=== PATIENT | male | born 1985 | race Caucasian/White ===

== ENCOUNTER → 2019-12-21 12:58 | Outpatient (BNVA) | payer OTHER, SELFPAY | PROVIDERS: PCP Internal Medicine; Referring Provider Internal Medicine; Visit Provider Internal Medicine Gastroenterology | DX: K21.9 Gastro-esophageal reflux disease without esophagitis (principal); R11.2 Nausea with vomiting, unspecified; R63.4 Abnormal weight loss; D50.9 Iron deficiency anemia, unspecified; D13.0 Benign neoplasm of esophagus; Z79.899 Other long term (current) drug therapy; Z98.890 Other specified postprocedural states | CPT/HCPCS: 99213 ==

== ENCOUNTER → 2020-01-22 08:26 | Outpatient (BNVA) | payer OTHER, SELFPAY | PROVIDERS: PCP Internal Medicine; Referring Provider Internal Medicine; Visit Provider Internal Medicine Gastroenterology | DX: D50.9 Iron deficiency anemia, unspecified (principal); R63.4 Abnormal weight loss; K21.9 Gastro-esophageal reflux disease without esophagitis; R11.2 Nausea with vomiting, unspecified; F11.20 Opioid dependence, uncomplicated | CPT/HCPCS: 99212 ==

== ENCOUNTER 2020-01-23 09:15 | Outpatient (REF) | payer OTHER, SELFPAY ==
[2020-01-23 11:41] LABS: Hematocrit 38.5 % (42-52); Hemoglobin 12.6 g/dl (14.0-18.0); Mean Corpuscular HGB Conc 32.7 g/dl (31.0-36.0); Mean Corpuscular Hemoglobin 29.6 pg (27.0-33.0); Mean Corpuscular Volume 90.4 fL (80-98); Mean Platelet Volume 10.4 fL (9.4-12.4); Platelet Count 264 X10*3/uL (160-400); Red Blood Count 4.26 X10*6/uL (4.60-5.80); Red Cell Distribution Width 11.9 % (11.0-16.0); White Blood Count 5.6 X10*3/uL (4.8-10.8)
[2020-01-23 11:52] LABS: Estimated Average Glucose 105 mg/dL; Hemoglobin A1c % 5.3 %
[2020-01-23 12:00] LABS: Glucose Fasting 94 mg/dL (60-99); Iron 98 mcg/dL (45-160); Percent Iron Saturation 32 % (15-50); Total Iron Binding Capacity 307 mcg/dL (228-428); Unsaturated Iron Binding 209 ug/dL
[2020-01-23 12:24] LABS: Ferritin 52 ng/mL (20-250)
[2020-01-24 14:21] LABS: Insulin Level Total 2.2 uIU/mL
== END 2020-01-23 09:16 | disposition home or self-care (01) ==
LOC: HO.HMGCLDS 09:15
PROVIDERS: PCP Internal Medicine; Visit Provider Internal Medicine Gastroenterology
DX: D50.9 Iron deficiency anemia, unspecified (principal); R11.2 Nausea with vomiting, unspecified; R63.4 Abnormal weight loss
CPT/HCPCS: 36415; 82728; 82947; 83036; 83525; 83540; 85027

== ENCOUNTER 2020-02-02 11:58 | Outpatient (REF) | payer OTHER, SELFPAY | END 2020-02-02 11:59 | disposition home or self-care (01) | LOC: HO.LNP 11:58 | PROVIDERS: Visit Provider Hospitalist | DX: Z20.828 Contact with and (suspected) exposure to other viral communicable diseases (principal) | CPT/HCPCS: U0003 ==

== ENCOUNTER → 2020-05-23 08:24 | Outpatient (BNVA) | payer OTHER, SELFPAY | PROVIDERS: PCP Internal Medicine; Visit Provider Internal Medicine Gastroenterology ==

== ENCOUNTER 2020-06-28 07:45 | Day surgery (SDC) | payer OTHER, SELFPAY ==
--- NOTE | 2020-06-26 14:53 | HO.ANESPROP2 ---
Documented by User: Tianna Linares 06/26/20 14:54 HPI - Anesthesia Eval Consult details Narrative: 35yo M for Colonoscopy PMFSH Active Problems Active Problems: All Active Problems (Updated 05/23/20 @ 08:47 by Ronny Olivera MD) Exposure to COVID-19 virus (Acute) Acute sinusitis (Acute) Subcutaneous mass of left foot (Acute) Iron deficiency anemia (Acute) Weight loss, unintentional (Acute) GERD without esophagitis (Acute) Nausea and vomiting (Acute) Past Medical History Medical History Anxiety GERD without esophagitis History of opiate therapy Iron deficiency anemia Nausea and vomiting Subcutaneous mass of left foot Weight loss, unintentional Family History Family History Father Alive and well Mother Alive and well Surgical History Surgical History Hx of appendectomy Hx of endoscopy Hx of removal of cyst Social History Social History Alcohol intake: never Smoking Status: Never smoker Second Hand Smoke Exposure: No Use of substances other than those prescribed or required for medical reasons: Yes Substance Use Type: Marijuana Substance Use Frequency: Occasionally Advance Directives: No Advance Directives Information Provided: Yes Advance Directives on File: No Meds Allergies Allergy/AdvReac Type Severity Reaction Status Date / Time latex [LATEX] Allergy Unknown RASH Verified 06/28/20 08:17 BLISTERS latex Allergy Unknown skin rash Uncoded 02/02/20 09:21 laxtex Allergy Unknown rash Uncoded 02/02/20 09:21 Home Medications Medication Instructions Recorded Confirmed Last Taken Type buprenorphine 8 mg-naloxone 2 mg film SUBLINGUAL 12/20/19 05/23/20 Unknown History sublingual film Exam Exam Date and Time: June 26, 2020 498 Assessment and Plan Assessment Anesthesia Assessment: Chart Reviewed Documented by User: Miriam Tobar 06/28/20 08:17 PMFSH Past Medical History Medical History Anxiety GERD without esophagitis History of opiate therapy Iron deficiency anemia Nausea and vomiting Subcutaneous mass of left foot Weight loss, unintentional Family History Family History Father Alive and well Mother Alive and well Surgical History Surgical History Hx of appendectomy Hx of endoscopy Hx of removal of cyst Social History Social History Alcohol intake: never Smoking Status: Never smoker Second Hand Smoke Exposure: No Use of substances other than those prescribed or required for medical reasons: Yes Substance Use Type: Marijuana Substance Use Frequency: Occasionally Advance Directives: No Advance Directives Information Provided: Yes Advance Directives on File: No Meds Allergies Allergy/AdvReac Type Severity Reaction Status Date / Time latex [LATEX] Allergy Unknown RASH Verified 06/28/20 08:17 BLISTERS latex Allergy Unknown skin rash Uncoded 02/02/20 09:21 laxtex Allergy Unknown rash Uncoded 02/02/20 09:21 Home Medications Medication Instructions Recorded Confirmed Last Taken Type buprenorphine 8 mg-naloxone 2 mg film SUBLINGUAL 12/20/19 05/23/20 Unknown History sublingual film Exam Airway Mallampati Class: II TM Dist: >3cm Neck ROM: Full Assessment and Plan Assessment Anesthesia Assessment: Anesthesia Plan Discussed and Chart Reviewed Final Anesthetic Review NPO: Yes ASA Class: II Final Preanesthetic Review: No Changes in Pt Med Stat, Meds/Allgs Chart Reviewed, Consent Obtained/Reviewed and Anes Risks/Benef Reviewed Patient Risk: Low Procedure Risk: Low Assessment/Block/Sedation in SS: Assess/Block/Sedation-SS Anesthetic Plan Anesthetic Plan: MAC: Disposition: Standard PACU
[2020-06-28 07:52] VITALS: BMI 22.1
[2020-06-28] MEDS: Lactated Ringers 1,000 ML 100 ML IVCONT (08:18)
--- NOTE | 2020-06-28 08:20 | P.OP_ITS ---
Operative Note Operative Note Date of Service: 06/28/20 Narrative: Pre-op diagnosis: Iron deficiency anemia, wt loss Post-op diagnosis: other (Colon polyp, diverticulosis, hemorrhoids) Procedure: COLONOSCOPY TILL CECUM WITH BIOPSIES, SNARE POLYPECTOMY, SUBMUCOSAL INJECTION AN D HEMOCLIP PLACEMENT Consent: Indications for the procedure and potential complications of bleeding, perforation, reaction to medications and missed diagnosis were discussed with the patient and informed consent was obtained. Instrument: Olympus PCF H 190 L variable stiffness pediatric colonoscope Monitoring: Vital signs and clinical assessment, intermittent blood pressure monitoring, continuous EKG monitoring, Pulse oximetry and Carbon Dioxide monitoring were done throughout the procedure. Colon withdrawl time was 40 minutes. Procedure: The patient was placed in the left lateral decubitis position and pre-procedure medications were administered. After a digital rectal examination of the ano-rectum, the video colonoscope was inserted into the rectum and advanced through the colon to the cecum. The colonoscope was slowly withdrawn in a retrograde panoramic fashion and the colon mucosa was carefully examined including a retroflexed view of the rectum. Findings and interventions are described below. Procedure Difficulty: Without difficulty Findings: Terminal Ileum: Distal 10 cms was examined and nodular appearing mucosa visualized - random biopsies were obtained Cecum: Normal Ascending Colon: A 2.5 x 3 cms flat polyp in the distal AC at 80 cms. Polyp was raised with 5 cc of Orise solution and removed piece meal with a stiff snare. Polypectomy site was marked with Fidelia ink and closed with resolution clips x 2 Transverse Colon: Normal Descending Colon: Normal Sigmoid Colon: Moderate diverticulosis Rectum: Normal Ano-rectum: Small internal hemorrhoids Colon preparation: Good after some irrigation Impression and Post Procedure Diagnosis: Colonoscopy Findings: One large flat polyp removed Random biopsies were obtained from the colon and TI Moderate diverticulosis seen in the sigmoid colon Small hemorrhoids on retroflexed exam. No source found for AMY and weight loss Plan: Await pathology results Patient has an appointment on 07/11/20 in the GI Clinic with Ronny Olivera M.D. Repeat Colonoscopy interval based on path results - in 1 year (to check polypectomy site) if ascending colon polyp is adenomatous and 10 years if polyps is hyperplastic. Above findings were reviewed with the patient and colon polyps and diverticulosis handouts were given in the discharge area Surgeon: Ronny Olivera MD Anesthesia: MAC (Olinda Downs, ELENA) House Calls Nurse: Salome Brock Estimated blood loss (mL): 0 Pathology: other (A. TI RANDOM BXS, R/O IBD B. ASCENDING COLON POLYP AT 80 CM WITH O-RISE C. RANDOM COLON BXS, R/O MICROSCOPIC COLITIS) Condition: stable Disposition: PACU
--- NOTE | 2020-06-28 08:20 | MHC.SHP ---
Pre-Procedural Eval Section A The patient is an INPATIENT: No The History & Physical has been completed within 30 days and I have reviewed it.: No Section B Chief Complaint: anemia Details of Present Illness: Iron deficiency anemia Relevant Family History (Specify if Yes): No Relevant Social History: Other (specify) (Marijuana) Present Medications: see Short Stay Collaborative assessment Medical History: Significant History (Anxiety GERD without esophagitis History of opiate therapy Iron deficiency anemia Nausea and vomiting Subcutaneous mass of left foot Weight loss, unintentional) History of Previous Operations: Relevant previous surgery/procedure and date(s) (Hx of appendectomy Hx of endoscopy Hx of removal of cyst) Allergies: Allergies Allergy/AdvReac Type Severity Reaction Status Date / Time latex [LATEX] Allergy Unknown RASH Verified 06/28/20 08:17 BLISTERS latex Allergy Unknown skin rash Uncoded 02/02/20 09:21 laxtex Allergy Unknown rash Uncoded 02/02/20 09:21 Review of Systems Sugical H&P ROS: Negative: Constitution, Cardiovascular and Respiratory and Yes, Specify: Gastrointestinal (GERD, weight loss) Exam Surgical H&P Exam: Normal: Heart, Normal: Lungs, Normal: Extremities and Normal: Abdomen Plan Diagnosis/Plan: Unchanged I have reviewed the history and physical and performed a pertinent physical examination on my patient. No changes have occurred unless specified.
[2020-06-28 09:55] VITALS: BP 116/76; PULSE 73; RESP 16; TEMP 36.6; O2SAT 98
[2020-06-28 10:10] VITALS: BP 123/74; PULSE 70; RESP 16; TEMP 36.6; O2SAT 100
== END 2020-06-28 10:33 | disposition home or self-care (01) ==
PROVIDERS: PCP Internal Medicine; Visit Provider Internal Medicine Gastroenterology
PROC: 0DJD8ZZ Inspection of Lower Intestinal Tract, Via Natural or Artificial Opening Endoscopic (ICD-10-PCS; CPT 45378; principal; 2020-06-28 09:20)
DX: D50.9 Iron deficiency anemia, unspecified (principal); R63.4 Abnormal weight loss; R11.2 Nausea with vomiting, unspecified; K21.9 Gastro-esophageal reflux disease without esophagitis; D12.2 Benign neoplasm of ascending colon; K57.30 Diverticulosis of large intestine without perforation or abscess without bleeding; K64.8 Other hemorrhoids
CPT/HCPCS: 45385; 45380; 45381; 88305; J1610

== ENCOUNTER → 2020-07-11 14:31 | Outpatient (BNVA) | payer OTHER, SELFPAY | PROVIDERS: PCP Internal Medicine; Visit Provider Internal Medicine Gastroenterology | DX: D50.9 Iron deficiency anemia, unspecified (principal); R63.4 Abnormal weight loss; K21.9 Gastro-esophageal reflux disease without esophagitis; R11.2 Nausea with vomiting, unspecified; Z86.010 Personal history of colon polyps | CPT/HCPCS: 99212 ==

== ENCOUNTER 2020-08-26 09:07 | Outpatient (REF) | payer OTHER, SELFPAY ==
--- NOTE | ~2020-08-26 | CT_ITS ---
EXAMINATION: CT ABDOMEN AND PELVIS WITH CONTRAST CLINICAL INFORMATION: On an deficiency anemia. COMPARISON: None TECHNIQUE: Multidetector volumetric images were obtained from the superior aspect of the liver through the pubic symphysis following administration 85 mL of Omnipaque 350 intravenous contrast. Sagittal and coronal reformatted images were obtained on the technologist's workstation. Oral contrast: No This CT examination was performed using dose optimization techniques as appropriate, variously including the following: *Automated exposure control *Adjustment of mA and/or kV according to patient size (this includes techniques or standardized protocols for targeted exams where dose is matched to indication/reason for exam; i.e. extremities or head) *Use of iterative reconstruction technique DLP: 498 mGy-cm FINDINGS: LUNG BASES: The visualized lung bases are unremarkable. LIVER, GALLBLADDER, AND BILIARY TREE: The liver is normal in size, shape, and attenuation. No focal hepatic lesion or biliary ductal dilatation is present. The gallbladder is unremarkable with no evidence of radiopaque gallstones, gallbladder wall thickening, or obvious pericholecystic inflammatory changes. PANCREAS: Unremarkable. SPLEEN: Unremarkable. ADRENAL GLANDS: Unremarkable. KIDNEYS AND URETERS: The kidneys are normal in size, shape, and attenuation. No hydronephrosis, hydroureter, or calculi seen. No perinephric stranding. BLADDER: Unremarkable. GASTROINTESTINAL TRACT: Scattered stool, oral contrast and gas is seen throughout the colon without distention. A low-lying cecum in the right pelvis is noted. There is oral contrast seen throughout a normal caliber small bowel. Appendix is not visualized. No free air or inflammatory process seen. ABDOMINAL WALL: No significant hernia is appreciated. LYMPH NODES: Normal. VASCULAR: Unremarkable. PELVIC VISCERA: The prostate gland is normal size. OSSEOUS STRUCTURES: There are degenerative disc changes with vacuum disc phenomena and mild disc bulge L5-S1 disc level. CT/CT abdomen pelvis w con IMPRESSION: Moderate constipation without distention. Low-lying cecum in the right colon.
[2020-08-26] MEDS: iohexoL 350 MG/ML 100 ML INFUS..BTL IV (12:09)
[2020-08-26] MEDS: Barium Sulfate Oral (Mocha) 450 ML ORAL.SUSP 900 ML PO (12:11)
== END 2020-08-26 09:08 | disposition home or self-care (01) ==
LOC: HO.CT 09:07
PROVIDERS: PCP Internal Medicine; Visit Provider Internal Medicine Gastroenterology
DX: D50.9 Iron deficiency anemia, unspecified (principal); Z87.442 Personal history of urinary calculi
CPT/HCPCS: 74177; Q9967

== ENCOUNTER 2021-05-26 06:14 | Outpatient (REF) | payer OTHER, SELFPAY ==
[2021-05-26 11:31] LABS: MANUAL DIFF FLAG NO
[2021-05-26 11:34] LABS: Basophils Percent Auto 0.6 % (0-2); Eosinophils Absolute Auto 0.2 X10*3/uL (0.0-0.4); Eosinophils Percent Auto 2.2 % (0-4); Hematocrit 39.2 % (42.0-52.0); Hemoglobin 12.9 g/dl (14.0-18.0); Imm Gran Abs Auto 0.01 X10*3/uL (0.00-0.03); Imm Gran Pct Auto 0.1 % (0.0-0.4); Lymphocytes Absolute Auto 1.9 X10*3/uL (1.2-4.9); Lymphocytes Percent Auto 27.6 % (20-40); Mean Corpuscular HGB Conc 32.9 g/dl (31.0-36.0); Mean Corpuscular Hemoglobin 29.5 pg (27.0-33.0); Mean Corpuscular Volume 89.7 fL (80.0-98.0); Mean Platelet Volume 10.6 fL (9.4-12.4); Monocytes Absolute Auto 0.7 X10*3/uL (0.1-1.2); Monocytes Percent Auto 10.1 % (2-11); Neutrophils Absolute Auto 4.1 x10*3/uL (2.0-8.3); Neutrophils Percent Auto 59.4 % (45-73); Platelet Count 288 X10*3/uL (160-400); Red Blood Count 4.37 X10*6/uL (4.60-5.80); Red Cell Distribution Width 12.2 % (11.0-16.0); White Blood Count 6.9 X10*3/uL (4.8-10.8)
[2021-05-26 12:09] LABS: Alanine Aminotransferase 12 U/L (0-40); Anion Gap 12 (12-20); Aspartate Amino Transferase 15 U/L (5-37); Blood Urea Nitrogen 19 mg/dL (9-16); Calcium 9.5 mg/dL (8.4-10.2); Carbon Dioxide 33 mmol/L (22-29); Chloride 99 mmol/L (96-108); Cholesterol 151 mg/dL; Estimated Glomerular Filt Rate > 60; Glucose Fasting 97 mg/dL (60-99); HDL Cholesterol 50 mg/dL; Iron 51 mcg/dL (45-160); LDL Cholesterol Calculated 70 mg/dl; Percent Iron Saturation 16 % (15-50); Potassium 4.8 mmol/L (3.3-5.1); Sodium 139 mmol/L (135-145); Total Iron Binding Capacity 312 mcg/dL (228-428); Triglycerides 157 mg/dL; Unsaturated Iron Binding 261 ug/dL
== END 2021-05-26 06:15 | disposition home or self-care (01) ==
LOC: HO.HMGCLDS 06:14
PROVIDERS: Visit Provider Internal Medicine
DX: Z00.00 Encounter for general adult medical examination without abnormal findings (principal); K21.9 Gastro-esophageal reflux disease without esophagitis; D50.9 Iron deficiency anemia, unspecified; F41.1 Generalized anxiety disorder
CPT/HCPCS: 36415; 80048; 80061; 83540; 84450; 84460; 85025

== ENCOUNTER 2021-06-05 09:07 | Outpatient (REF) | payer OTHER, SELFPAY ==
[2021-06-07 08:02] LABS: Transglutaminase Ab IgG <1.0 U/mL
[2021-06-07 11:42] LABS: Immunoglobulin A 326 mg/dL (47-310)
[2021-06-10 14:41] LABS: Endomysial IgA Antibody Negative (Negative)
== END 2021-06-05 09:08 | disposition home or self-care (01) ==
LOC: HO.HMGCLDS 09:07
PROVIDERS: PCP Internal Medicine; Visit Provider Internal Medicine
DX: M25.50 Pain in unspecified joint (principal); D50.9 Iron deficiency anemia, unspecified; Z83.79 Family history of other diseases of the digestive system
CPT/HCPCS: 36415; 82784; 86231; 86364

== ENCOUNTER → 2021-09-05 09:20 | Outpatient (BNVA) | payer OTHER, SELFPAY | PROVIDERS: PCP Internal Medicine; Visit Provider Internal Medicine Gastroenterology | DX: D50.9 Iron deficiency anemia, unspecified (principal); K21.9 Gastro-esophageal reflux disease without esophagitis; R63.4 Abnormal weight loss; Z68.1 Body mass index [BMI] 19.9 or less, adult; R68.81 Early satiety; Z86.010 Personal history of colon polyps; Z83.79 Family history of other diseases of the digestive system; Z79.899 Other long term (current) drug therapy | CPT/HCPCS: 99212 ==

== ENCOUNTER → 2021-11-28 07:53 | Outpatient (REF) | payer OTHER, SELFPAY ==
--- NOTE | ~2021-11-28 | NM_ITS ---
EXAMINATION: RADIONUCLIDE SOLID FOOD GASTRIC EMPTYING 4-HOUR STUDY CLINICAL INFORMATION: Early satiety. COMPARISON: No previous gastric emptying study is available for comparison. TECHNIQUE: A standard meal consisting of 4 oz of Egg Beaters brand equivalent tagged with 130 microcuries Tc-99m Sulfur Colloid, 8 oz water and 2 slices of toast with jelly was administered orally to the patient. Images were obtained using a dual head gamma camera in the anterior and posterior projections over of the stomach immediately post ingestion and at hourly intervals up to 4 hours post ingestion. The anterior and posterior counts at each time interval were averaged using the geometric mean and expressed as percentage of the immediate post ingestion counts. FINDINGS: There is good visualization of activity in the stomach immediately post ingestion. As the study progresses, there is there clearance of activity from the stomach and visualization of progressively increasing small bowel activity. Liver, at the end of the study at 4 hours there is mild abnormal retention of activity in the stomach. Retention in the stomach at each time interval was: 1 hour 72% (normal 37%-90%) 2 hours 53% (normal 30%-60%) 3 hours 30% 4 hours 14% (normal 0%-10%) FL/FL gastric emptying study IMPRESSION: Abnormal study. There is mild abnormal retention of solid food in the stomach at 4 hours.
== END ==
LOC: HO.NUCMED 07:53
PROVIDERS: PCP Internal Medicine; Visit Provider Internal Medicine Gastroenterology
DX: R68.81 Early satiety (principal); R63.4 Abnormal weight loss
CPT/HCPCS: 78264; A9541

== ENCOUNTER → 2022-01-07 13:08 | Outpatient (BNVA) | payer OTHER, SELFPAY | PROVIDERS: PCP Internal Medicine; Visit Provider Physician Assistant | DX: S67.01XA Crushing injury of right thumb, initial encounter (principal); X58.XXXA Exposure to other specified factors, initial encounter | CPT/HCPCS: 73140; 99204 ==

== ENCOUNTER → 2022-01-12 14:49 | Outpatient (BNVA) | payer OTHER, SELFPAY | PROVIDERS: PCP Internal Medicine; Visit Provider Internal Medicine | DX: S67.01XA Crushing injury of right thumb, initial encounter (principal); L03.011 Cellulitis of right finger; X58.XXXA Exposure to other specified factors, initial encounter | CPT/HCPCS: 99213 ==

== ENCOUNTER → 2022-01-19 13:32 | Outpatient (BNVA) | payer OTHER, SELFPAY | PROVIDERS: PCP Internal Medicine; Visit Provider Internal Medicine | DX: S67.01XA Crushing injury of right thumb, initial encounter (principal); X58.XXXA Exposure to other specified factors, initial encounter | CPT/HCPCS: 99213 ==

== ENCOUNTER 2022-06-12 09:58 | Day surgery (SDC) | payer OTHER, SELFPAY ==
[2022-06-08 15:32] VITALS: BMI 19.9
--- NOTE | 2022-06-11 12:37 | HO.ANESPROP2 ---
HPI - Anesthesia Eval Consult details Narrative: 36yo M for Upper Endoscopy and Colonoscopy [facility] Active Problems Active Problems: All Active Problems (Updated 06/08/22 @ 15:35 by Cielo Medellin RN) History of renal calculi (Acute) History of colon polyps (Acute) Early satiety (Acute) Weight loss (Acute) RLS (restless legs syndrome) (Acute) Multiple episodes of hypoglycemia (Acute) Family history of celiac disease (Acute) Arthralgia of left foot (Acute) Iron deficiency anemia (Acute) GERD without esophagitis (Acute) Past Medical History Medical History (Updated 06/25/22 @ 07:37 by Ronny Olivera MD) Anxiety Arthralgia of left foot Family history of celiac disease GERD without esophagitis History of COVID-19 History of opiate therapy Iron deficiency anemia Multiple episodes of hypoglycemia Nausea and vomiting RLS (restless legs syndrome) Subcutaneous mass of left foot Weight loss, unintentional Family History Family History Father Alive and well Mother Alive and well Surgical History Surgical History Hx of appendectomy Hx of colonoscopy Hx of endoscopy Hx of removal of cyst Social History Social History Housing: Apartment Alcohol intake: never Patient Tobacco Use Status: Never used Tobacco e-Cigarette/Vaping Use: Currently Using Second Hand Smoke Exposure: No Substance Use Type: Marijuana service: No Current occupational status: employed Cognitive needs: No Hearing needs: No Vision needs: Yes Meds Allergies Allergy/AdvReac Type Severity Reaction Status Date / Time latex [LATEX] Allergy Unknown RASH Verified 06/25/22 07:43 BLISTERS Home Medications Medication Instructions Recorded Confirmed Last Taken Type buprenorphine 8 mg-naloxone 2 mg film sublingual 12/20/19 06/25/22 06/12/22 History sublingual film ascorbate calcium (vitamin C) 500 500 mg PO DAILY 05/13/21 06/25/22 Unknown History mg tablet Exam Exam Date and Time: June 11, 2022 1237 Height,Weight and Vital Signs: Height 6 ft 2 in Weight 70.307 kg Assessment and Plan Assessment Anesthesia Assessment: Chart Reviewed
[2022-06-12 10:00] VITALS: BP 114/86; PULSE 91; RESP 18; TEMP 36.6; O2SAT 97
[2022-06-12] MEDS: Lactated Ringers 1,000 ML 100 ML IVCONT (10:21)
--- NOTE | 2022-06-12 10:32 | MHC.SHP ---
Pre-Procedural Eval Section A Date of Service: 06/12/22 The patient is an INPATIENT: No The History & Physical has been completed within 30 days and I have reviewed it.: No Section B Chief Complaint: screening, hx of polyps, GERD Details of Present Illness: colon cancer screening, history of colon polyps, GERD, early satiety, weight loss Relevant Family History (Specify if Yes): No Relevant Social History: None Present Medications: see Short Stay Collaborative assessment Medical History: Significant History (Anxiety History of COVID-19 History of opiate therapy Nausea and vomiting Subcutaneous mass of left foot Weight loss, unintentional) History of Previous Operations: Relevant previous surgery/procedure and date(s) (Hx of appendectomy Hx of colonoscopy Hx of endoscopy Hx of removal of cyst) Allergies: Allergies Allergy/AdvReac Type Severity Reaction Status Date / Time latex [LATEX] Allergy Unknown RASH Verified 05/15/22 10:19 BLISTERS Review of Systems Sugical H&P ROS: Negative: Constitution, Cardiovascular and Respiratory and Yes, Specify: Gastrointestinal (GERD) Exam Surgical H&P Exam: Normal: Heart, Normal: Lungs, Normal: Extremities and Normal: Abdomen Plan Diagnosis/Plan: Unchanged I have reviewed the history and physical and performed a pertinent physical examination on my patient. No changes have occurred unless specified. Time Spent With Patient Time: Total time managing care of this patient today ____ minutes.
--- NOTE | 2022-06-12 11:28 | P.BOP_ITS ---
Brief Operative Note Date of Service: 06/12/22 Pre-op diagnosis: colon cancer screening, history of colon polyps, GERD, early satiety, weight loss Post-op diagnosis: other (GERD, Gastritis, diverticulosis, hemorrhoids) Procedure: FLEXIBLE TRANSORAL UPPER GASTROINTESTINAL ENDOSCOPY WITH BIOPSIES AND COLONOSCOPY TILL CECUM Surgeon: Ronny Olivera MD Anesthesia: MAC Was an Distribution Operations Manager used for this Procedure?: Yes Distribution Operations Manager: Salome Brock Estimated blood loss (mL): 0 Pathology: other ( A. antral bxs, R/O H. pylori B. gastric body bxs) Condition: stable Disposition: PACU
--- NOTE | 2022-06-12 11:30 | W.PM.OPN ---
Operative Note Operative Note Date of Service: 06/12/22 Narrative: FLEXIBLE TRANSORAL UPPER GASTROINTESTINAL ENDOSCOPY WITH BIOPSIES AND COLONOSCOPY TILL CECUM UPPER ENDOSCOPY Consent: Indications for the procedure and potential complications of bleeding, perforation, reaction to medications and missed diagnosis were discussed with the patient and informed consent was obtained. Instrument: Olympus GIF H 190 mid size upper endoscope Monitoring: Vital signs and clinical assessment, continuous EKG monitoring, Pulse oximetry, Carbon Dioxide monitoring and blood pressure monitoring were done throughout the procedure. Procedure: The patient was placed in the left lateral decubitis position and pre-procedure medications were administered and a bite block was placed. The endoscope was inserted into the mouth and advanced under direct vision to the third part of duodenum. A careful inspection was made as the upper endoscope was withdrawn including a retroflexed examination of the proximal stomach; Findings and interventions are described below. Findings: Larynx: Normal Esophagus: GE junction at 40 cms. No esophagitis or Javier's. Stomach: Moderate diffuse gastric erythema. Biopsies were obtained fom the antrum and body of the stomach. Grade 2 flap valve on retroflexed examination of the cardia. Duodenum: Normal bulb and descending duodenum Intervention: Biopsies as noted above COLONOSCOPY PROCEDURE NOTE Consent: Indications for the procedure and potential complications of bleeding, perforation, reaction to medications and missed diagnosis were discussed with the patient and informed consent was obtained. Instrument: Olympus PCF H 190 L variable stiffness pediatric colonoscope Monitoring: Vital signs and clinical assessment, intermittent blood pressure monitoring, continuous EKG monitoring, Pulse oximetry and Carbon Dioxide monitoring were done throughout the procedure. Colon withdrawl time was 18 minutes. Procedure: The patient was placed in the left lateral decubitis position and pre-procedure medications were administered. After a digital rectal examination of the ano-rectum, the video colonoscope was inserted into the rectum and advanced through the colon to the cecum. The colonoscope was slowly withdrawn in a retrograde panoramic fashion and the colon mucosa was carefully examined including a retroflexed view of the rectum. Findings and interventions are described below. Procedure Difficulty: Colon was long and tortuous and there was some loop formation. No maneuvers were required Findings: Terminal Ileum: Not evaluated Cecum: Normal Ascending Colon: Past polypectomy site was examined and no recurrent polyp was seen Transverse Colon: Normal Descending Colon: Normal Sigmoid Colon: Moderate diverticulosis Rectum: Normal Ano-rectum: Moderate internal hemorrhoids Colon preparation: Good after copious irrigation Impression and Post Procedure Diagnosis: Endoscopy Findings: STOMACH: Gastritis Colonoscopy Findings: No polyps were detected Moderate diverticulosis seen in the sigmoid colon Moderate hemorrhoids on retroflexed exam. Plan: Await pathology results Patient has an appointment on 06/25/22 in the GI Clinic with Ronny Olivera M.D. Repeat Colonoscopy interval based on path results - in 3 years due to a hx of a large sessile serrated adenoma on past colonoscopy. Above findings were reviewed with the patient and diverticulosis handout was given in the discharge area
--- NOTE | 2022-06-12 12:29 | HO.ANESPROP2 ---
HPI - Anesthesia Eval Consult details Narrative: screening gerd ho poly PMFSH Active Problems Active Problems: All Active Problems (Updated 06/08/22 @ 15:35 by Cielo Medellin, RN) History of renal calculi (Acute) History of colon polyps (Acute) Early satiety (Acute) Weight loss (Acute) RLS (restless legs syndrome) (Acute) Multiple episodes of hypoglycemia (Acute) Family history of celiac disease (Acute) Arthralgia of left foot (Acute) Iron deficiency anemia (Acute) GERD without esophagitis (Acute) Past Medical History Medical History (Updated 06/08/22 @ 15:35 by Cielo Medellin, OLGA) Anxiety Arthralgia of left foot Family history of celiac disease GERD without esophagitis History of COVID-19 History of opiate therapy Iron deficiency anemia Multiple episodes of hypoglycemia Nausea and vomiting RLS (restless legs syndrome) Subcutaneous mass of left foot Weight loss, unintentional Family History Family History Father Alive and well Mother Alive and well Family history of problems with anesthesia: No Surgical History Surgical History Hx of appendectomy Hx of colonoscopy Hx of endoscopy Hx of removal of cyst History of Problems with Anesthesia: No Social History Social History Housing: Apartment Alcohol intake: never Patient Tobacco Use Status: Never used Tobacco e-Cigarette/Vaping Use: Currently Using Second Hand Smoke Exposure: No Substance Use Type: Marijuana Are you DNR?: No Advance Directives: No Advance Directives Information Provided: Yes Nutrition Risks: No Nutritional Risk service: No Current occupational status: employed Cognitive needs: No Hearing needs: No Vision needs: Yes Meds Allergies Allergy/AdvReac Type Severity Reaction Status Date / Time latex [LATEX] Allergy Unknown RASH Verified 05/15/22 10:19 BLISTERS Active Medications: Current Medications Lactated Ringer's (Lr) 1,000 mls @ 100 mls/hr IVCONT .Q10H SP Last Admin: 06/12/22 10:21 Dose: 100 mls/hr Home Medications Medication Instructions Recorded Confirmed Last Taken Type buprenorphine 8 mg-naloxone 2 mg film sublingual 12/20/19 05/15/22 06/12/22 History sublingual film ascorbate calcium (vitamin C) 500 500 mg PO DAILY 05/13/21 06/08/22 Unknown History mg tablet Exam Exam Date and Time: June 12, 2022 1229 Height,Weight and Vital Signs: Height 6 ft 2 in Weight 70.307 kg Last Vital Signs Temp 98 F 06/12/22 10:00 Pulse 91 06/12/22 10:00 Resp 18 06/12/22 10:00 BP 114/86 06/12/22 10:00 Pulse Ox 97 06/12/22 10:00 O2 Del Method Room Air 06/12/22 10:00 Airway Mallampati Class: I TM Dist: >3cm Neck ROM: Full Heart: rr Lungs: cta Assessment and Plan Assessment Anesthesia Assessment: Anesthesia Plan Discussed Final Anesthetic Review Family History of Problems with Anesthesia: No History of Problems with Anesthesia: No NPO: Yes ASA Class: II Final Preanesthetic Review: No Changes in Pt Med Stat, Meds/Allgs Chart Reviewed and Consent Obtained/Reviewed Patient Risk: Low Procedure Risk: Low Anesthetic Plan Anesthetic Plan: MAC: Disposition: Standard PACU
[2022-06-12 13:05] VITALS: BP 100/49; PULSE 53; RESP 16; TEMP 36.4; O2SAT 98
[2022-06-12 13:20] VITALS: BP 111/68; PULSE 50; RESP 16; O2SAT 99
[2022-06-12 13:36] VITALS: BP 134/70; PULSE 73; RESP 18; TEMP 36.1; O2SAT 98
== END 2022-06-12 14:03 | disposition home or self-care (01) ==
PROVIDERS: PCP Internal Medicine; Visit Provider Internal Medicine Gastroenterology
PROC: (CPT 45378; principal; 2022-06-12 11:00)
DX: Z12.11 Encounter for screening for malignant neoplasm of colon (principal); Z86.010 Personal history of colon polyps; K57.30 Diverticulosis of large intestine without perforation or abscess without bleeding; K64.8 Other hemorrhoids; K21.9 Gastro-esophageal reflux disease without esophagitis; K29.50 Unspecified chronic gastritis without bleeding; D50.9 Iron deficiency anemia, unspecified; R63.4 Abnormal weight loss; Z68.1 Body mass index [BMI] 19.9 or less, adult; R68.81 Early satiety; Z83.79 Family history of other diseases of the digestive system; F41.1 Generalized anxiety disorder; Z79.899 Other long term (current) drug therapy; F11.20 Opioid dependence, uncomplicated; F12.90 Cannabis use, unspecified, uncomplicated; U07.0 Vaping-related disorder; Z91.040 Latex allergy status; Z86.16 Personal history of COVID-19
CPT/HCPCS: 45378; 43239; 88305; 88342; J2250

== ENCOUNTER → 2022-06-25 07:26 | Outpatient (BNVA) | payer OTHER, SELFPAY | PROVIDERS: PCP Internal Medicine; Referring Provider Internal Medicine; Visit Provider Internal Medicine Gastroenterology | DX: Z86.010 Personal history of colon polyps (principal) | CPT/HCPCS: 99212 ==

== ENCOUNTER 2022-06-27 | Outpatient (REF) | payer OTHER, SELFPAY ==
[2022-07-01 08:31] LABS: FIT1 NEGATIVE (NEGATIVE); FIT2 NEGATIVE (NEGATIVE)
[2022-07-01 08:32] LABS: FIT Int Ctl YES
== END 2022-06-27 00:01 | disposition home or self-care (01) ==
LOC: HO.LNP
PROVIDERS: Visit Provider Internal Medicine Gastroenterology
DX: D50.9 Iron deficiency anemia, unspecified (principal)
CPT/HCPCS: 82274

== ENCOUNTER 2022-12-24 07:13 | Outpatient (AMB) | payer OTHER, SELFPAY ==
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
[2022-12-24 07:52] VITALS: BP 126/74; PULSE 74; BMI 20.9
== END 2022-12-24 08:13 | disposition home or self-care (01) ==
PROVIDERS: Visit Provider Internal Medicine Gastroenterology
DX: Z86.010 Personal history of colon polyps (principal); R68.81 Early satiety; R63.4 Abnormal weight loss; Z83.79 Family history of other diseases of the digestive system; D50.9 Iron deficiency anemia, unspecified; K21.9 Gastro-esophageal reflux disease without esophagitis
CPT/HCPCS: 99499

== ENCOUNTER → 2022-12-24 07:13 | Outpatient (BNVA) | payer OTHER, SELFPAY | PROVIDERS: Visit Provider Internal Medicine Gastroenterology ==

== ENCOUNTER 2022-12-24 08:32 | Outpatient (REF) | payer OTHER, SELFPAY ==
[2022-12-24 13:43] LABS: Ferritin 103 ng/mL (20-250)
[2022-12-28 13:13] LABS: Transglutaminase IgA <1.0 U/mL
== END 2022-12-24 08:33 | disposition home or self-care (01) ==
LOC: HO.HMGCLDS 08:32
PROVIDERS: Absent Provider Internal Medicine Gastroenterology; PCP Internal Medicine; Visit Provider Internal Medicine
DX: Z00.01 Encounter for general adult medical examination with abnormal findings (principal); R68.81 Early satiety; E16.2 Hypoglycemia, unspecified; R63.4 Abnormal weight loss; K21.9 Gastro-esophageal reflux disease without esophagitis; D50.9 Iron deficiency anemia, unspecified; Z86.010 Personal history of colon polyps; Z83.79 Family history of other diseases of the digestive system
CPT/HCPCS: 36415; 80048; 80061; 82306; 82607; 82728; 82746; 83036; 83525; 83540; 84443; 84450; 84460; 84630; 85025; 85027; 86364

== ENCOUNTER 2023-02-03 11:57 | Emergency (ER) | payer OTHER, SELFPAY ==
--- NOTE | ~2023-02-03 | XR_ITS ---
EXAMINATION: XR ABDOMEN COMPLETE CLINICAL INDICATION: Central abdominal pain and constipation COMPARISON: CT abdomen pelvis 08/26/2020 TECHNIQUE: 2 views of the abdomen. FINDINGS: The bowel gas pattern is normal with no evidence of ileus or obstruction. A moderate to large stool burden is present throughout the colon. Phleboliths are present in the pelvis. No unusual soft tissue calcifications are noted. The bones are unremarkable. XR/XR abdomen min 2V IMPRESSION: Moderate to large stool burden. No evidence of bowel obstruction.
[2023-02-03 12:21] VITALS: BP 137/85; PULSE 81; RESP 16; TEMP 36.9; O2SAT 98; BMI 21.6
--- NOTE | 2023-02-03 12:21 | ED_ITS ---
HPI - Abdominal Pain General Chief Complaint: Abdominal Pain Stated Complaint: abd pain, not gone to bathroom in days Time Seen by Provider: 02/03/23 13:03 Source: patient Mode of arrival: ambulatory Limitations: no limitations History of Present Illness HPI narrative: 37-year-old history of chronic constipation patient normally go every 3-4 days came in for intermittent abdominal cramps for the past 6 days last bowel movement was 6 days ago, no nausea, no vomiting, able to pass flatus, patient feels very hard stool in the rectum. Patient follows up with GI for chronic constipation. No fever, no nausea, no vomiting, no dysuria, no frequency urination, no hematuria, no fever. History of appendectomy. Related Data Home Medications Medication Instructions Recorded Confirmed buprenorphine 8 mg-naloxone 2 mg film sublingual 12/20/19 12/24/22 sublingual film ascorbate calcium (vitamin C) 500 500 mg PO DAILY 05/13/21 12/24/22 mg tablet Previous Rx's Medication Instructions Recorded lansoprazole 30 mg capsule,delayed 30 mg PO DAILY 90 days #90 caps 06/11/22 release ferrous fumarate 325 mg (106 mg 325 mg PO DAILY #90 caps 06/19/22 iron) tablet (Ferretts) polyethylene glycol 3350 17 17 g PO DAILY 30 days #510 grams 12/24/22 gram/dose oral powder (Miralax) Allergies Allergy/AdvReac Type Severity Reaction Status Date / Time latex [LATEX] Allergy Unknown RASH Verified 02/03/23 12:24 BLISTERS Review of Systems Review of Systems all other systems are reviewed and are negative Constitutional: Reports as per HPI and Reports no additional constitutional complaints Eyes: Reports as per HPI and Reports no additional eye complaints Reports system reviewed and no additional complaints, except as documented Cardiovascular: Reports as per HPI and Reports no additional cardiovascular complaints Respiratory: Reports as per HPI and Reports no additional respiratory complaints Gastrointestinal: Reports as per HPI and Reports no additional gastrointestinal complaints Genitourinary: Reports no additional female genitourinary complaints Musculoskeletal: Reports no additional musculoskeletal complaints Skin/Breast: Reports system reviewed and no additional complaints, except as docu Psychiatric: Reports no additional psychiatric complaints Endocrine: Reports no additional endocrine complaints Hematologic/Lymphatic: Reports no additional hematologic/lymphatic complaints Allergic/Immunologic: Reports no additional allergic/immunologic complaints Reports system reviewed and no additional complaints, except as documented and Reports Abnormal speech present [facility] Past Medical History Medical History RLS (restless legs syndrome) Multiple episodes of hypoglycemia Family history of celiac disease Arthralgia of left foot History of COVID-19 Subcutaneous mass of left foot Iron deficiency anemia Weight loss, unintentional Nausea and vomiting GERD without esophagitis History of opiate therapy Anxiety Surgical History Hx of colonoscopy Hx of removal of cyst Hx of endoscopy Hx of appendectomy Family History Family History Father Alive and well Mother Alive and well Social History Social History Housing: Apartment Alcohol intake: never Patient Tobacco Use Status: Never used Tobacco e-Cigarette/Vaping Use: Currently Using Second Hand Smoke Exposure: No Substance Use Type: Marijuana Advance Directives: No service: No Current occupational status: employed Cognitive needs: No Hearing needs: No Vision needs: Yes Physical Exam ED Vital Signs: Vital Signs - 24 hr 02/03/23 12:21 Temperature 98.4 F Pulse Rate 81 Respiratory Rate 16 Blood Pressure 137/85 Pulse Oximetry 98 Oxygen Delivery Method Room Air BMI result Body Mass Index 21.6 Vital signs have been reviewed and appear to be correct. Blood pressure elevated. Heart rate normal. Respiratory rate normal. Temperature normal. Oxygen saturation normal. Appearance: Alert. Oriented X3. No acute distress. Head: Normal external exam. Normocephalic. Atraumatic. No Boggs signs noted. No raccoon eyes noted Eyes: PERRLA. EOMI. Conjunctiva and sclera normal. Eyelids normal. ENT: TM's Normal. Pharynx normal. Uvula midline. Moist mucous membranes. No trismus noted. No drooling noted. No muffled voice noted. Neck: Normal inspection. Neck supple. FROM. No adenopathy. Thyroid Normal. No meningeal signs. No neck mass noted. CVS: Normal heart rate and rhythm. Heart sound normal. No murmurs noted. Pulses normal throughout. Respiratory: No respiratory distress. Painless inspiration. Breath sounds normal. No wheezes/rales/rhonchi noted. Chest nontender. No accessory muscle usage noted or decreased air movement noted. Abdomen: Soft and nontender. Bowel sounds normal in all 4 quadrants. No distention noted. No organomegaly noted. No visible injury noted. Rectal exam: Hard stool in the vault, partial disimpaction, patient was able to have a bowel movement in the emergency department with improvement of the Back: No CVA tenderness. Full range of motion noted. Skin: Skin warm and dry. Normal skin color. Normal skin turgor. No rashes/lesions/lacerations noted. Extremities: No lower extremity edema. Extremities exhibit normal range of motion. Extremities nontender. Neuro: Oriented X 3. Cranial nerve exam: II-XII are grossly intact No motor deficit. No sensory deficit. Reflexes normal. Course Course Course Narrative: RME: 37yo M w/PMHx RLS, hypoglycemia, anemia, GERD, presenting to the ED c/o chills, constipation w/o BM x4-5 days w/ intermittent abdominal pain. Admits is passing flatus today. Admits to feeling fecal matter stuck in rectum but unable to get it out. Has been taking OTC meds w/o relief. +Nausea. denies vomiting appears uncomfortable Labs, UA, Abd XR ordered Full HPI, ROS and PE to be performed by primary ED provider. Reevaluation(s) Reevaluation #1: s/p rectal disimpaction partial removal of hard stool from the vault patient had a bowel movement in the emergency department feels better, relief of the intra-abdominal pressure and pain, able to tolerate p.o. intake, patient has no dysuria or frequency urination no need for the urine analysis. Patient was able to urinate in the bathroom after had a big bowel movement. Time: 13:15 Medical Decision Making Differential Diagnosis Differential Diagnoses: The differential diagnosis associated with the presentation includes ( Severe constipation, small-bowel obstruction, electrolyte abnormality, severe anemia, Pancreatitis, gallbladder disease.) Admission/Observation Consideration of admission/observation: Escalation of care including admission/observation considered Lab Data MDM Lab Attestation statement: I reviewed the patient's lab results. 02/03/23 12:30 02/03/23 12:30 Labs: Lab Results 02/03/23 Range/Units 12:30 WBC 9.4 (4.8-10.8) X10*3/uL RBC 4.27 L (4.60-5.80) X10*6/uL Hgb 12.7 L (14.0-18.0) g/dl Hct 37.5 L (42.0-52.0) % MCV 87.8 (80.0-98.0) fL MCH 29.7 (27.0-33.0) pg MCHC 33.9 (31.0-36.0) g/dl RDW 12.0 (11.0-16.0) % Plt Count 221 (160-400) X10*3/uL MPV 9.5 (9.4-12.4) fL Immature Gran % (Auto) 0.2 (0.0-0.4) % Neut % (Auto) 82.6 H (45-73) % Lymph % (Auto) 10.9 L (20-40) % Ceiba % (Auto) 5.6 (2-11) % Eos % (Auto) 0.4 (0-4) % Baso % (Auto) 0.3 (0-2) % Lymph # (Auto) 1.0 L (1.2-4.9) X10*3/uL Ceiba # (Auto) 0.5 (0.1-1.2) X10*3/uL Eos # (Auto) 0.0 (0.0-0.4) X10*3/uL Baso # (Auto) 0.0 (0.0-0.2) X10*3/uL Abs Immat Gran (auto) 0.02 (0.00-0.03) X10*3/uL Absolute Neuts (auto) 7.8 (2.0-8.3) x10*3/uL Absolute Nucleated RBC 0.000 (0.0-0.012) X10*3/uL Nucleated RBC % (auto) 0.0 (0.0-0.2) /100WBC Sodium 138 (135-145) mmol/L Potassium 4.6 (3.3-5.1) mmol/L Chloride 101 (96-108) mmol/L Carbon Dioxide 32 H (22-29) mmol/L Anion Gap 10 L (12-20) BUN 16 (9-16) mg/dL Creatinine 0.74 (0.5-1.4) mg/dL Estim Creat Clear Calc 144.4 Estimated GFR > 60 Random Glucose 109 (60-115) mg/dL Calcium 9.3 (8.4-10.2) mg/dL Magnesium 1.8 (1.6-2.6) mg/dL Total Bilirubin 0.3 (0.0-1.0) mg/dL Direct Bilirubin 0.1 (0.0-0.5) mg/dL AST 19 (5-37) U/L ALT 14 (0-40) U/L Alkaline Phosphatase 45 (39-117) U/L Total Protein 7.3 (6.5-8.0) g/dL Albumin 4.4 (3.5-5.0) g/dL Lipase 24 (8-78) U/L Independent Interpretation I performed an independent interpretation of an: Plain X-Ray ( Abdomen: Constipation no evidence of small-bowel obstruction.) Radiology Impression Discussion of test interpretation with radiology: I have reviewed the radiologist's reading. Discharge Plan Discharge Clinical Impression: Constipation Patient Disposition: Home, Self-Care Instructions: Constipation (DC) Prescriptions: No Action lansoprazole 30 mg capsule,delayed release(DR/EC) 30 mg PO DAILY 90 Days Qty: 90 1RF Ferretts 325 mg (106 mg iron) tablet 325 mg PO DAILY Qty: 90 1RF ascorbate calcium (vitamin C) 500 mg tablet 500 mg PO DAILY buprenorphine-naloxone 8-2 mg film sublingual polyethylene glycol 3350 [Miralax] 17 gram/dose powder 17 g PO DAILY 30 Days Qty: 510 3RF Referrals: Payal Jaime MD [Primary Care Provider] - Interventions: ED Discharge Assessment Last Done: 02/03/23 13:47 Discharge Date/Time: 02/03/23 13:48
[2023-02-03 12:35] LABS: MANUAL DIFF FLAG NO
[2023-02-03 12:36] LABS: Basophils Percent Auto 0.3 % (0-2); Eosinophils Percent Auto 0.4 % (0-4); Hematocrit 37.5 % (42.0-52.0); Hemoglobin 12.7 g/dl (14.0-18.0); Imm Gran Abs Auto 0.02 X10*3/uL (0.00-0.03); Imm Gran Pct Auto 0.2 % (0.0-0.4); Lymphocytes Percent Auto 10.9 % (20-40); Mean Corpuscular HGB Conc 33.9 g/dl (31.0-36.0); Mean Corpuscular Hemoglobin 29.7 pg (27.0-33.0); Mean Corpuscular Volume 87.8 fL (80.0-98.0); Mean Platelet Volume 9.5 fL (9.4-12.4); Monocytes Absolute Auto 0.5 X10*3/uL (0.1-1.2); Monocytes Percent Auto 5.6 % (2-11); Neutrophils Absolute Auto 7.8 x10*3/uL (2.0-8.3); Neutrophils Percent Auto 82.6 % (45-73); Platelet Count 221 X10*3/uL (160-400); Red Blood Count 4.27 X10*6/uL (4.60-5.80); White Blood Count 9.4 X10*3/uL (4.8-10.8)
[2023-02-03 12:53] LABS: Alanine Aminotransferase 14 U/L (0-40); Albumin Level 4.4 g/dL (3.5-5.0); Alkaline Phosphatase 45 U/L (39-117); Anion Gap 10 (12-20); Aspartate Amino Transferase 19 U/L (5-37); Bilirubin Direct 0.1 mg/dL (0.0-0.5); Bilirubin Total 0.3 mg/dL (0.0-1.0); Blood Urea Nitrogen 16 mg/dL (9-16); Calcium 9.3 mg/dL (8.4-10.2); Carbon Dioxide 32 mmol/L (22-29); Chloride 101 mmol/L (96-108); Creatinine Clr Calc Pharmacy 144.4; Estimated Glomerular Filt Rate > 60; Glucose Random 109 mg/dL (60-115); Lipase 24 U/L (8-78); Magnesium 1.8 mg/dL (1.6-2.6); Potassium 4.6 mmol/L (3.3-5.1); Sodium 138 mmol/L (135-145); Total Protein 7.3 g/dL (6.5-8.0)
== END 2023-02-03 13:48 | disposition home or self-care (01) ==
PROVIDERS: Physician Assistant; Emergency Provider Emergency Medicine; PCP Internal Medicine
DX: K59.00 Constipation, unspecified (principal); R10.9 Unspecified abdominal pain; F17.210 Nicotine dependence, cigarettes, uncomplicated; Z71.6 Tobacco abuse counseling; Z79.899 Other long term (current) drug therapy
CPT/HCPCS: 36415; 74019; 80048; 80076; 83690; 83735; 85025; 99283

== ENCOUNTER 2023-02-23 10:46 | Outpatient (AMB) | payer OTHER, SELFPAY ==
[2023-02-23 10:55] VITALS: BP 110/72; PULSE 69; O2SAT 97; BMI 21.1
--- NOTE | 2023-02-23 10:55 | A.OFFPC_ITS ---
Vital Signs 02/23/23 10:55 Height 6 ft 2 in Weight 164 lb 4 oz BMI 21.1 BP 110/72 Blood Pressure Location Rt brachial Position Sitting Pulse 69 Pulse Source Pulse Oximeter Pulse Oximetry (%) 97 Oxygen Delivery Method Room Air Intake Visit Reasons: lump left flank Intake Note: Pt has a lump on the left side of his back and it has gotten larger and is painful to the touch pt says it has been their since he was a teen but now that it's bigger it is causing pain Allergies latex [LATEX] Allergy (Unknown, Verified 02/23/23 11:24) RASH BLISTERS Medication List - Last Reconciled 02/23/23 by Payal Jaime MD ascorbate calcium (vitamin C) 500 mg PO DAILY buprenorphine-naloxone 8-2 mg film sublingual ferrous fumarate (Ferretts) 325 mg PO DAILY lansoprazole 30 mg PO DAILY 90 days mecobalamin (vitamin B12) mcg PO polyethylene glycol 3350 (Miralax) 17 grams PO DAILY 30 days potassium mg PO psyllium husk (Daily Fiber) 0.4 grams PO BEDTIME Tobacco use date assessed: 02/23/23 Dental Screening Dental Screen Date: 02/23/23 Did you have a dental visit in the last 12 months?: Yes Did you have a dental problem in the last 6 months where you did not have access to dental care?: No Was dental information given to patient?: Patient has dentist HPI lump left flank HPI Details 37-year-old male here today wanting to h ave a lump on his left lower back checked. Patient states that he has felt a pebble sized mass on the same area since he was a teenager, but it seems to have gotten bigger and causes some discomfort when he leans towards the left side when reaching for something, otherwise not giving him any trouble at all [facility] Medical History COVID-19 vaccination declined Nodular lesion on surface of skin RLS (restless legs syndrome) Multiple episodes of hypoglycemia Family history of celiac disease Arthralgia of left foot History of COVID-19 Subcutaneous mass of left foot Iron deficiency anemia Weight loss, unintentional Nausea and vomiting GERD without esophagitis History of opiate therapy Anxiety Surgical History Hx of colonoscopy Hx of removal of cyst Hx of endoscopy Hx of appendectomy Family History Father Alive and well Mother Alive and well Social History Housing: Apartment Alcohol intake: never Patient Tobacco Use Status: Never used Tobacco e-Cigarette/Vaping Use: Currently Using Second Hand Smoke Exposure: No Substance Use Type: Marijuana service: No Current occupational status: employed Cognitive needs: No Hearing needs: No Vision needs: Yes Questionnaire Thrive Questionnaire Date Thrive assessed: 05/15/22 RADHA-7 AMB Questionnaire RADHA-7 Date RADHA - 7 assessed: 05/15/22 Source: Developed by Drs. Juan Carlos Sage, Jojo Aj, Liborio Madrid and colleagues, with an educational carmita from [employer]. Review of Systems Const All systems reviewed & are unremarkable except as noted in HPI and below Physical exam (Primary Care) Vital Signs: Last Vital Signs Pulse 69 02/23/23 10:55 BP 110/72 02/23/23 10:55 Pulse Ox 97 02/23/23 10:55 Oxygen Delivery Method Room Air 02/23/23 10:55 BMI result Body Mass Index 21.1 Tobacco/Smoking Status: Tobacco use Status Tobacco use date assessed 02/23/23 02/23/23 11:03 Patient Tobacco Use Status Never used Tobacco 02/23/23 11:03 e-Cigarette/Vaping Use Currently Using 02/23/23 11:03 Thrive Assessment: Date of Thrive Assessment Date Thrive assessed 05/15/22 02/23/23 11:03 Const Other: Alert oriented x3, no acute distress noted, ambulatory normal gait Back/Spine/Pelvis Other: 2 x 1 cm mobile nontender nodular mass palpated on left lower back just above the hip. Skin General skin exam: no rashes or lesions noted Extrem General: Yes full ROM, Yes no joint enlargement, Yes no clubbing, cyanosis or edema and Yes normal gait Office Procedures Flu Questionnaire Does the patient have a severe egg allergy?: No Does the patient have severe life threatening allergies?: No Does the patient have a fever or illness today?: No Has the patient ever had Guillain-Thurmond Syndrome?: No Has the patient ever had any past reaction to a flu shot?: No Immunizations flu vacc [id number] 6mos up(PF) 60 mcg(15 mcgx4)/0.5 mL IM syringe Performing Provider: Payal Jaime MD Performing Location: [facility] [place] [facility] Administered by: Kristal Moser CMA on 02/23/23 11:23 Dose Route Admin Location Dispensed Lot Number Expiration Date NDC Auto Tune Up Mechanic 0.5 mL IM Left Deltoid 0.5 mL [id number] 09/19/23 39323-135-72 [employer] VIS Given Date VIS Provided VIS Publication Date 02/23/23 Single Vaccine 20 Eligibility Eligibility Date Funding Source Not [facility] Eligible 02/23/23 Private Assessment and Plan Assessment & Plan (1) Nodular lesion on surface of skin: Comment: Left lower back just above the hip Code(s): L98.9 - Disorder of the skin and subcutaneous tissue, unspecified Plan: Mobile 2 x 1 cm nodular mass felt, nontender on left lower back , likely lipoma. Currently asymptomatic except for when he leans towards his left side to reach for something that he feels it. Will observe for now, advised patient to let us know if it starts getting bigger, cause any pain, then at that point will recommend surgical excision of the mass (2) COVID-19 vaccination declined: Code(s): Z28.21 - Immunization not carried out because of patient refusal (3) Needs flu shot: Code(s): Z23 - Encounter for immunization Plan: Flu vaccine given today Orders: Orders Influenza [id number] Immunization Today Z23 - Encounter for immunization Coding Level of Care Code Est Pt Level 3 (76444) Diagnoses Nodular lesion on surface of skin L98.9 COVID-19 vaccination declined Z28.21 Needs flu shot Z23
== END 2023-02-23 12:15 | disposition home or self-care (01) ==
PROVIDERS: PCP Internal Medicine; Visit Provider Internal Medicine
DX: L98.9 Disorder of the skin and subcutaneous tissue, unspecified (principal); Z28.21 Immunization not carried out because of patient refusal; Z23 Encounter for immunization
CPT/HCPCS: 90471; 90686; 99213

== ENCOUNTER 2024-11-02 15:26 | Outpatient (AMB) | payer OTHER, SELFPAY ==
--- NOTE | 2024-11-02 15:35 | A.OFFPC_ITS ---
Vital Signs 11/02/24 15:36 Height 6 ft 2 in Weight 145 lb BMI 18.6 BP 112/72 Blood Pressure Location Rt brachial Position Sitting Respiration 16 Pulse 82 Pulse Source Pulse Oximeter Pulse Oximetry (%) 98 Oxygen Delivery Method Room Air Intake Visit Reasons: Losing weight, already underweight Allergies latex (LATEX) Allergy (Unknown, Verified 11/05/24 17:02) RASH BLISTERS Medication List - Last Reconciled 11/02/24 by Payal Jaime MD ascorbate calcium (vitamin C) 500 mg PO DAILY buprenorphine-naloxone 8-2 mg 1/2 film po qd famotidine 40 mg PO DAILY mecobalamin (vitamin B12) mcg PO Tobacco use date assessed: 11/02/24 Dental Screening Dental Screen Date: 11/02/24 Did you have a dental visit in the last 12 months?: Yes Did you have a dental problem in the last 6 months where you did not have access to dental care?: Yes Was dental information given to patient?: Patient has dentist HPI Losing weight, already underweight HPI Details 39-year-old male presenting with gastrointestinal symptoms, suspected eating disorder, and concerns regarding weight loss and substance use management. - Reports symptoms of gastroesophageal r eflux disease (GERD), including nausea and abdominal pain, particularly in the late afternoon, which are exacerbated by not eating. - Suspects an eating disorder due to a p attern of not eating, leading to early satiety and headaches. - Possible Wilfrid's disease is being co nsidered, with an ACTH stimulation test planned. - Currently on Suboxone for substance us e disorder, [facility] but dose has not been adjusted for some time now, would like to be tapered off Suboxone. - Reports significant weight loss from 1 80 lbs to 135 lbs, with a recent gain of 10 lbs after dietary changes, has been eating about 6 meals a day but usually fast food and pasta. Patient states that he quit drinking red bull more than six-months ago. [facility] Medical History (Updated 11/02/24 @ 16:18 by Payal Jaime MD) Lightheadedness Unintentional weight loss of 10% body weight within 6 months COVID-19 vaccination declined Nodular lesion on surface of skin RLS (restless legs syndrome) Multiple episodes of hypoglycemia Family history of celiac disease Arthralgia of left foot History of COVID-19 Subcutaneous mass of left foot Iron deficiency anemia Weight loss, unintentional Nausea and vomiting GERD without esophagitis History of opiate therapy Anxiety Surgical History Hx of colonoscopy Hx of removal of cyst Hx of endoscopy Hx of appendectomy Family History Father Alive and well Mother Alive and well Social History Housing: Apartment Alcohol intake: never Patient Tobacco Use Status: Never used Tobacco e-Cigarette/Vaping Use: Currently Using Second Hand Smoke Exposure: No Substance Use Type: Marijuana service: No Current occupational status: employed Cognitive needs: No Hearing needs: No Vision needs: Yes Questionnaire PHQ-9 Over the last 2 weeks, how often have you been bothered by any of the following problems? 1. Little interest or pleasure in doing things: not at all 2. Feeling down, depressed, or hopeless: not at all 3. Trouble falling or staying asleep, or sleeping too much: not at all 4. Feeling tired or having little energy: several days 5. Poor appetite or overeating: nearly every day 6. Feeling bad about yourself - or that you are a failure or have let yourself or your family down: not at all 7. Trouble concentrating on things, such as reading the newspaper or watching television: not at all 8. Moving or speaking so slowly that other people could have noticed. Or the opposite - being so fidgety or restless that you have been moving around a lot more than usual: nearly every day 9. Thoughts that you would be better off or of hurting yourself in some way: not at all Total score: 7 Depression Screening Interpretation: Negative Depression Screening Done: Yes 50525 - PHQ-9 Billing: Yes Source: Developed by Drs. Juan Carlos Sage, Jojo Aj, Liborio Madrid and colleagues, with an educational carmita from [employer]. Thrive Questionnaire Date Thrive assessed: 11/02/24 I am a: Patient What is your living situation today?: I have a steady place to live Within the past 12 months, did the food you bought not last and you didn't have the money to get more?: Never true Within the past 12 months, did you worry whether your food would run out before you got money to buy more?: Never true Do you have trouble paying for medicines?: No Do you have trouble getting transportation to medical appointments?: No Do you have trouble paying your heating and electricity bill?: No Do you have trouble taking care of your child, family member or friend?: No Do you have trouble with day-to-day activities such as bathing, preparing meals, shopping, managing finances, etc.?: No Are you currently unemployed and looking for a job?: No Are you interested in more education?: No Please select the resources that you would like help with: None Currently or been in a relationship where the following occur: No concerns reported THRIVE Score: 0 AUDIT C Alcohol Use Questionnaire (AUDIT-C) 1. How often do you have a drink containing alcohol?: Never Total Score: 0 RADHA-7 AMB Questionnaire RADHA-7 Date RADHA - 7 assessed: 11/02/24 Feeling nervous, anxious, or on edge: 0 = Not at all Not being able to stop or control worryin = Not at all Worrying too much about different things: 0 = Not at all Trouble relaxin = Not at all Being so restless that it is hard to sit still: 3 = Nearly every day Becoming easily annoyed or irritable: 0 = Not at all Feeling afraid as if something awful might happen: 0 = Not at all Total RADHA-7 score (0-4 normal; 5-9 mild; 10-14 moderate; 15-21 severe): 3 Source: Developed by Drs. Juan Carlos Sage, Jojo Aj, Liborio Madrid and colleagues, with an educational carmita from [employer]. RADHA-7 Assessment Billing RADHA-7 Assessment Tool: RADHA-7 Assessment 31833 Review of Systems Const All systems reviewed & are unremarkable except as noted in HPI and below GI Details: Has been having heartburn, shakiness and nausea, relieved by eating Physical exam (Primary Care) Vital Signs: Last Vital Signs Pulse 82 11/02/24 15:36 Resp 16 11/02/24 15:36 BP 112/72 11/02/24 15:36 Pulse Ox 98 11/02/24 15:36 Oxygen Delivery Method Room Air 11/02/24 15:36 BMI result Body Mass Index 18.6 Tobacco/Smoking Status: Tobacco use Status Tobacco use date assessed 11/02/24 11/02/24 15:41 Patient Tobacco Use Status Never used Tobacco 11/02/24 15:36 e-Cigarette/Vaping Use Currently Using 11/02/24 15:36 PHQ-9: PHQ-9 Score PHQ-9: Total score 7 11/02/24 16:09 Depression Screening Interpretation: Negative Thrive Assessment: Date of Thrive Assessment Date Thrive assessed 11/02/24 11/02/24 15:41 Currently or been in a relationship where the following occur: No concerns reported Const Other: Alert oriented x3, no acute distress noted, ambulatory normal gait Orientation/consciousness: patient oriented x3 HENMT Head: Yes normocephalic General nose exam: Normal external nose present Face and sinus: Yes face symmetric Mouth: Normal oral and palatal mucosa present, oropharynx normal and moist mucous membranes Eyes General: appearance normal, both eyes and all related structures Neck Neck: Yes full ROM, Yes no lymphadenopathy and Yes supple Thyroid: other (Nonpalpable) Resp Auscultation: clear to auscultation bilaterally Cardio Rate: regular rate Rhythm: regular rhythm Heart sounds: S1 normal heart sound present and S2 normal heart sound present GI Inspection: Yes normal to inspection Palpation (GI): Soft to palpation, nontender, no guarding and no masses Auscultation: normal bowel sounds General: Yes no CVA tenderness Back/Spine/Pelvis Back: no CVA tenderness Skin General skin exam: no rashes or lesions noted Neuro General: patient oriented x3, gait normal, tone normal, moves all extremities and no focal motor deficits Extrem General: Yes full ROM, Yes no joint enlargement, Yes no clubbing, cyanosis or edema and Yes normal gait Psych Appearance: grossly normal and well kempt Mental Status: mental status grossly normal Speech and movement: Normal speech and movement present Affect: normal affect Coding Level of Care Code Est Pt Level 4 (75847) Diagnoses Unintentional weight loss of 10% body weight within 6 months R63.4 Lightheadedness R42 History of opiate therapy Z92.29 GERD without esophagitis K21.9 Early satiety R68.81 Additional Codes RADHA-7 Assessment Billing - RADHA-7 Assessment Tool: RADHA-7 Assessment 17716 ([id number]) PHQ-9 - 05657 - PHQ-9 Billing: Yes ([id number]) Assessment & Plan Assessment & Plan (1) Unintentional weight loss of 10% body weight within 6 months: Code(s): R63.4 - Abnormal weight loss Category: Medical (2) Lightheadedness: Code(s): R42 - Dizziness and giddiness Category: Medical (3) History of opiate therapy: Comment: currently taking suboxone Code(s): Z92.29 - Personal history of other drug therapy Category: Medical (4) GERD without esophagitis: Comment: Continue lansoprazole 30 mg twice daily. Code(s): K21.9 - Gastro-esophageal reflux disease without esophagitis Category: Medical (5) Early satiety: Code(s): R68.81 - Early satiety Category: Medical Plan The patient will undergo an ACTH stimulation test to evaluate for Rush's disease, given the symptoms of weight loss and difficulty gaining weight. Blood work will be conducted to assess insulin levels, complete blood count, liver function, electrolytes, thyroid function, and vitamin B12, D , and folic acid levels. The patient is advised to continue tapering off Suboxone, with a goal to discontinue by February, and will be referred to an addiction medicine specialist for further evaluation management. A prescription for famotidine 40 mg once daily is provided to manage gastroesophageal reflux disease symptoms, with instructions to take it half an hour before meals, stop lansoprazolels. GI consult made again further evaluation management. Was supposed to be seen for follow-up after his last visit with Dr. Olivera but was unable to do so due to lack of insurance. The patient is encouraged to maintain a regular eating schedule to prevent symptoms of shakiness and headaches, and to avoid foods that exacerbate symptoms. Patient was informed and verbally consented to the use of an ambient scribe for clinic note documentation during this visit. Orders: Orders ACTH Stimulation Test 2 Spec. 11/02/24 R63.4 - Abnormal weight loss Vitamin B12 and Folate 11/04/24 R63.4 - Abnormal weight loss Vitamin D 25-OH Total 11/04/24 R63.4 - Abnormal weight loss C Peptide 11/04/24 R42 - Dizziness and giddiness, R63.4 - Abnormal weight loss Comprehensive [place]. Panel Fast 11/04/24 R63.4 - Abnormal weight loss Complete Blood Count Auto Diff 11/04/24 R63.4 - Abnormal weight loss TSH reflex Free T4 11/04/24 R63.4 - Abnormal weight loss Insulin 11/04/24 R42 - Dizziness and giddiness, R63.4 - Abnormal weight loss Referrals Gastroenterology Referral K21.9 - Gastro-esophageal reflux disease without esophagitis, R63.4 - Abnormal weight loss, R68.81 - Early satiety Addiction Medicine Referral Z92.29 - Personal history of other drug therapy Medications: New famotidine 40 mg PO DAILY 30 tabs 4RF
[2024-11-02 15:36] VITALS: BP 112/72; PULSE 82; RESP 16; O2SAT 98; BMI 18.6
== END 2024-11-02 16:16 | disposition home or self-care (01) ==
LOC: HO.HMCC 15:27
PROVIDERS: PCP Internal Medicine; Visit Provider Internal Medicine
DX: R63.4 Abnormal weight loss (principal); R42 Dizziness and giddiness; Z92.29 Personal history of other drug therapy; K21.9 Gastro-esophageal reflux disease without esophagitis; R68.81 Early satiety

== ENCOUNTER → 2024-11-02 15:26 | Outpatient (BNVA) | payer OTHER, SELFPAY | PROVIDERS: PCP Internal Medicine; Visit Provider Internal Medicine | DX: K21.9 Gastro-esophageal reflux disease without esophagitis (principal); R63.4 Abnormal weight loss; R42 Dizziness and giddiness; R68.81 Early satiety; F11.20 Opioid dependence, uncomplicated; Z92.29 Personal history of other drug therapy | CPT/HCPCS: 96127 ==

== ENCOUNTER 2024-11-04 06:35 | Outpatient (REF) | payer OTHER, SELFPAY ==
[2024-11-04 11:29] LABS: MANUAL DIFF FLAG NO
[2024-11-04 11:33] LABS: Hematocrit 38.1 % (42.0-52.0); Hemoglobin 13.0 g/dl (14.0-18.0); Imm Gran Abs Auto 0.01 X10*3/uL (0.00-0.03); Imm Gran Pct Auto 0.2 % (0.0-0.4); Lymphocytes Absolute Auto 1.6 X10*3/uL (1.2-4.9); Mean Corpuscular HGB Conc 34.1 g/dl (31.0-36.0); Mean Corpuscular Hemoglobin 30.4 pg (27.0-33.0); Mean Corpuscular Volume 89.0 fL (80.0-98.0); NRBC Abs Auto 0.000 X10*3/uL (0.0-0.012); NRBC Pct Auto 0.0 /100WBC (0.0-0.2); Platelet Count 236 X10*3/uL (160-400); Red Blood Count 4.28 X10*6/uL (4.60-5.80); White Blood Count 4.8 X10*3/uL (4.8-10.8)
[2024-11-04 11:54] LABS: Alanine Aminotransferase 15 U/L (0-40); Albumin Level 4.5 g/dL (3.5-5.0); Alkaline Phosphatase 44 U/L (39-117); Anion Gap 10 (12-20); Aspartate Amino Transferase 22 U/L (5-37); Blood Urea Nitrogen 13 mg/dL (9-16); Calcium 9.4 mg/dL (8.4-10.2); Carbon Dioxide 31 mmol/L (22-29); Chloride 102 mmol/L (96-108); Estimated Glomerular Filt Rate > 60; Potassium 4.3 mmol/L (3.3-5.1); Sodium 139 mmol/L (135-145); Total Protein 7.1 g/dL (6.5-8.0)
[2024-11-04 12:15] LABS: Folate 13.4 ng/mL (> or = 4.0); Vitamin B12 995 pg/mL (200-900)
== END 2024-11-04 06:36 | disposition home or self-care (01) ==
LOC: HO.HMGCLDS 06:35
PROVIDERS: PCP Internal Medicine; Visit Provider Internal Medicine
DX: R42 Dizziness and giddiness (principal); R63.4 Abnormal weight loss
CPT/HCPCS: 36415; 80053; 82306; 82607; 82746; 83525; 84443; 84681; 85025

== ENCOUNTER 2024-11-06 15:34 | Outpatient (AMB) | payer OTHER, SELFPAY ==
--- NOTE | 2024-11-06 15:45 | MHC.OFFVIS ---
Vital Signs 11/06/24 15:46 Height 6 ft 2 in Weight 154 lb BMI 19.8 BP 120/80 Pulse 64 Pulse Oximetry (%) 98 Intake Visit Reasons: MAT intake Allergies latex (LATEX) Allergy (Unknown, Verified 11/06/24 15:47) RASH BLISTERS HPI Comments Details: The patient is a 39-year-old male presents for a MAT consult r/t BLADE. 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 Is connected to [employer] for the past years and presents today to gain additional information r/t making an informed decision about tapering off buprenorphine-naloxone. During conversation frequently mentions parents keep asking when he will get off buprenorphine-naloxone and is not sure if this is the best decision to make. Inquires about reducing buprenorphine-naloxone film dosing and or switching to a long acting injectable such as Sublocade or Brixadi. [facility] Medical History (Updated 11/05/24 @ 17:14 by Payal Jaime MD) Anemia Lightheadedness Unintentional weight loss of 10% body weight within 6 months COVID-19 vaccination declined Nodular lesion on surface of skin RLS (restless legs syndrome) Multiple episodes of hypoglycemia Family history of celiac disease Arthralgia of left foot History of COVID-19 Subcutaneous mass of left foot Iron deficiency anemia Weight loss, unintentional Nausea and vomiting GERD without esophagitis History of opiate therapy Anxiety Surgical History Hx of colonoscopy Hx of removal of cyst Hx of endoscopy Hx of appendectomy Family History Father Alive and well Mother Alive and well Social History Housing: Apartment Alcohol intake: never Patient Tobacco Use Status: Never used Tobacco e-Cigarette/Vaping Use: Currently Using Second Hand Smoke Exposure: No Substance Use Type: Marijuana service: No Current occupational status: employed Cognitive needs: No Hearing needs: No Vision needs: Yes Review of Systems Const All systems reviewed & are unremarkable except as noted in HPI and below Physical Exam Vital Signs: Last Vital Signs Pulse 64 11/06/24 15:46 BP 120/80 11/06/24 15:46 Pulse Ox 98 11/06/24 15:46 BMI result Body Mass Index 19.8 Const General: cooperative Nutritional Appearance: thin Orientation/consciousness: patient oriented x3 Limitations: no limitations Neuro General: patient oriented x3 Psych Appearance: well kempt Mental Status: mental status grossly normal Speech and movement: Normal speech and movement present Affect: Anxious affect present Attitude: cooperative Thought process: Normal thought process present Thought content: Normal thought content present and Obsession(s) present Insight: Fair insight present (Psych) Judgement: Fair judgement present (Psych) (Preoccupied with decision r/t buprenorphine-naloxone treatment. ) Results AMB 14 Panel Urine Drug Screen Urine Marijuana (THC) Positive Last Edit by Marilyn Lou CMA on 11/06/24 15:51 Urine Cocaine Negative Last Edit by Marilyn Lou CMA on 11/06/24 15:51 Urine Morphine Negative Last Edit by Marilyn Lou CMA on 11/06/24 15:51 Urine Methamphetamine Negative Last Edit by Marilyn Lou CMA on 11/06/24 15:51 Urine Amphetamine Negative Last Edit by Marilyn Lou CMA on 11/06/24 15:51 Urine Benzodiazepine Negative Last Edit by Marilyn Lou CMA on 11/06/24 15:51 Urine Barbiturates Negative Last Edit by Marilyn Lou CMA on 11/06/24 15:51 Urine Methadone Negative Last Edit by Marilyn Lou CMA on 11/06/24 15:51 Urine Buprenorphine Positive Last Edit by Marilyn Lou CMA on 11/06/24 15:51 Urine Tricyclic Antidepressant Negative Last Edit by Marilyn Lou CMA on 11/06/24 15:51 Urine MDMA Negative Last Edit by Marilyn Lou CMA on 11/06/24 15:51 Urine Oxycodone Positive Last Edit by Marilyn Lou CMA on 11/06/24 15:51 Urine Phencyclidine Negative Last Edit by Marilyn Lou CMA on 11/06/24 15:51 Urine Propoxyphene Negative Last Edit by Marilyn Lou CMA on 11/06/24 15:51 Results Reviewed Results Reviewed: Laboratory Last Values POC Urine Buprenorphine Positive 11/06/24 15:47 POC Urine Morphine Negative 11/06/24 15:47 POC Urine Oxycodone Positive 11/06/24 15:47 POC Urine Methadone Negative 11/06/24 15:47 POC Urine Propoxyphene Negative 11/06/24 15:47 POC Urine Barbiturates Negative 11/06/24 15:47 POC U Tricyclic Antidpr Negative 11/06/24 15:47 POC Urine PCP Negative 11/06/24 15:47 POC Ur Amphetamines Negative 11/06/24 15:47 POC Ur Methamphetamine Negative 11/06/24 15:47 POC Urine MDMA Negative 11/06/24 15:47 POC Ur Benzodiazepine Negative 11/06/24 15:47 POC Urine Cocaine Negative 11/06/24 15:47 POC Ur Marijuana (THC) Positive 11/06/24 15:47 Assessment & Plan Assessment & Plan (1) History of opiate therapy: Comment: currently taking suboxone Code(s): Z92.29 - Personal history of other drug therapy Category: Medical Plan Extensive education provided re: treatment options with extended release injectable, Sublocade, Brixadi, and dose reductions with films. The plan per patient's decision is to continue following up with current treatment provider at [facility]. Reports feeling informed of treatment options and protocols to safely taper down from buprenorphine-naloxone use. Information and card given to initiate contact with [facility] for mental health services. A referral will be initiated for a addictions recovery specialist. Encouraged to follow up with questions, concerns, or if deciding to receive treatment at the [facility]. Orders: Orders AMB 14 Panel Urine Drug Screen 11/06/24 Z51.81 - Encounter for therapeutic drug level monitoring Patient Instructions: - Follow up with current treatment provider. - Encouraged to follow up with questions, concerns, or if deciding to receive treatment at the [facility]. - Call with questions, concerns, or to report side effects/new onset of symptoms to [facility]. - The patient verbalized understanding and agreed with plan of care. 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- [employer] What is your current relationship status?: Current PCP: Payal Jaime Date of last visit: 11/02/24 Substance Abuse History Substance Abuse History (includes route, frequency and quantity): Buprenorphine/naloxone (MAT), Cocaine, Other opioids, Alcohol (Occasional beer- barely any over past 2 years) and Marijuana (CBD Gummies @ night) Social History Domestic Violence concerns: none Children: 1 Do you have a support system?: Son (20 yo), Parents Current mode of transportation?: own vehicle Where are you currently residing?: [facility]: NA IV Drug Use Have you ever shared needles?: No Have you ever belonged to a needle exchange program?: No Do you buy needles at a pharmacy?: No Have you ever overdosed?: No Number of lifetime overdoses: 0 Have you ever been hospitalized for an overdose?: No Was Naloxone administered?: Not applicable Recovery History Have you had any periods of recovery?: Yes What is your longest time in recovery?: Currently 8 years Have you ever had inpatient treatment for your substance abuse disorder?: No Have you been in an inpatient detoxification program?: No Have you been in an inpatient [place]hab/[place] house?: No Have you been in an outpatient Methadone Maintenance program?: No Have you been in an outpatient Suboxone Maintenance program?: Yes Have you been in an AA/NA support program?: Yes (Impaired driving program- DUI @ age of 15) Have you had a Recovery Support Veneer Taping Machine Operator?: No (Given information) Have you had Peer Support?: No Behavioral Health History Do you have a current provider? If so, who?: none diagnosis: none- anxiety? History of other addictive behavior: none reported History of inpatient psychiatric hospitalization? If so, how many? Most Recent? Where?: none History of self harming thoughts?: No History of homicidal or suicidal intentions?: No Medical Conditions Endocarditis?: No Skin Infection: No Seizure related to withdrawal or overdose: No Head or brain injury: No Hepatitis A (if yes, have you been treated?): No Hepatitis B (if yes, have you been treated?): No Hepatitis C (if yes, have you been treated?): No HIV (if yes, have you been treated?): No TB (if yes, have you been treated?): No Do you have any chronic pain conditions?: 2 Slipped discs in back Legal History History of incarceration: Yes (DUI @ 15) Currently on parole or probation: No Pending court cases: No DCF involvement: No
[2024-11-06 15:46] VITALS: BP 120/80; PULSE 64; O2SAT 98; BMI 19.8
== END 2024-11-06 17:00 | disposition home or self-care (01) ==
PROVIDERS: PCP Internal Medicine; Visit Provider Clinical Nurse Specialist Psychiatric/Mental Health
DX: Z92.29 Personal history of other drug therapy (principal)
CPT/HCPCS: 99203

== ENCOUNTER → 2024-11-06 15:34 | Outpatient (BNVA) | payer OTHER, SELFPAY | PROVIDERS: PCP Internal Medicine; Visit Provider Clinical Nurse Specialist Psychiatric/Mental Health | DX: Z51.81 Encounter for therapeutic drug level monitoring (principal); Z92.29 Personal history of other drug therapy | CPT/HCPCS: 80307 ==

== ENCOUNTER 2024-11-07 15:51 | Outpatient (REF) | payer OTHER, SELFPAY | END 2024-11-07 15:52 | disposition home or self-care (01) | LOC: HO.LAB 15:51 | PROVIDERS: PCP Internal Medicine; Visit Provider Internal Medicine | DX: Z13.89 Encounter for screening for other disorder (principal) ==

== ENCOUNTER 2024-11-15 13:54 | Outpatient (AMB) | payer OTHER, SELFPAY ==
--- NOTE | 2024-11-15 14:14 | MHC.PC.OV ---
Vital Signs 11/15/24 14:15 Height 6 ft 2 in Weight 145 lb BMI 18.6 BP 100/60 Blood Pressure Location Lt brachial Position Sitting Respiration 16 Pulse 76 Pulse Source Pulse Oximeter Temp 98.3 F Temp Source Oral Pulse Oximetry (%) 98 Oxygen Delivery Method Room Air Intake Visit Reasons: PE Intake Note: Pt is here today for his PE Allergies latex (LATEX) Allergy (Unknown, Verified 11/15/24 14:30) RASH BLISTERS Medication List - Last Reconciled 11/15/24 by Payal Jaime MD ascorbate calcium (vitamin C) 500 mg PO DAILY buprenorphine-naloxone 8-2 mg 1/2 film po qd famotidine 40 mg PO DAILY ferrous sulfate 325 mg PO DAILY mecobalamin (vitamin B12) once a week Tobacco use date assessed: 11/15/24 Dental Screening Dental Screen Date: 11/02/24 Did you have a dental visit in the last 12 months?: Yes Did you have a dental problem in the last 6 months where you did not have access to dental care?: Yes Was dental information given to patient?: Patient has dentist HPI PE HPI Details - The patient is a 39-year-old male presenting for his physical exam. - The patient reports waking up at night with abdominal pain and discomfort, which is relieved by bowel movements. - He experiences symptoms such as shivering, feeling hot, and abdominal cramping, which are alleviated after defecation. - The patient has a history of diverticulosis and colonic polyps, with the last colonoscopy showing no new polyps. - He has been experiencing restless leg syndrome, which improved after adjusting the timing of Suboxone intake. - The patient is currently tapering off Suboxone and reports no cravings for opioids. - He has a history of iron deficiency anemia, with recent labs showing improved hemoglobin levels. - The patient reports hyperhidrosis, particularly in the summer, leading to skin irritation. - He has been advised to continue iron supplementation and to take dicyclomine for IBS management. -- Colonoscopy: Last performed in 2021, no new polyps found. - Vaccinations: Up to date with tetanus and whooping cough, flu shot due. - Vitamin D: Advised to take Vitamin D3 2000 IU over the counter during winter months. [facility]LY [facility] Medical History (Updated 11/21/24 @ 02:31 by Payal Jaime MD) Anemia Lightheadedness Unintentional weight loss of 10% body weight within 6 months COVID-19 vaccination declined Nodular lesion on surface of skin RLS (restless legs syndrome) Multiple episodes of hypoglycemia Family history of celiac disease Arthralgia of left foot History of COVID-19 Subcutaneous mass of left foot Iron deficiency anemia Weight loss, unintentional Nausea and vomiting GERD without esophagitis History of opiate therapy Anxiety Surgical History Hx of colonoscopy Hx of removal of cyst Hx of endoscopy Hx of appendectomy Family History Father Alive and well Mother Alive and well Social History (Reviewed 11/21/24 @ 02: by Payal Jaime MD) Housing: Apartment Alcohol intake: never Patient Tobacco Use Status: Never used Tobacco e-Cigarette/Vaping Use: Currently Using Second Hand Smoke Exposure: No Substance Use Type: Marijuana service: No Current occupational status: employed Cognitive needs: No Hearing needs: No Vision needs: Yes Questionnaire Thrive Questionnaire Date Thrive assessed: 11/02/24 I am a: Patient What is your living situation today?: I have a steady place to live Within the past 12 months, did the food you bought not last and you didn't have the money to get more?: Never true Within the past 12 months, did you worry whether your food would run out before you got money to buy more?: Never true Do you have trouble paying for medicines?: No Do you have trouble getting transportation to medical appointments?: No Do you have trouble paying your heating and electricity bill?: No Do you have trouble taking care of your child, family member or friend?: No Do you have trouble with day-to-day activities such as bathing, preparing meals, shopping, managing finances, etc.?: No Are you currently unemployed and looking for a job?: No Are you interested in more education?: No Please select the resources that you would like help with: None Currently or been in a relationship where the following occur: No concerns reported THRIVE Score: 0 AUDIT C Alcohol Use Questionnaire (AUDIT-C) 3. How often do you have six or more drinks on one occasion?: Never Total Score: 0 RADHA-7 AMB Questionnaire RADHA-7 Date RADHA - 7 assessed: 11/02/24 Source: Developed by Drs. Juan Carlos Sage, Jojo Aj, Liborio Madrid and colleagues, with an educational carmita from [employer]. Review of Systems Const All systems reviewed & are unremarkable except as noted in HPI and below Eyes Details: Sees [facility] Physical exam (Primary Care) Vital Signs: Last Vital Signs Temp 98.3 F 11/15/24 14:15 Pulse 76 11/15/24 14:15 Resp 16 11/15/24 14:15 BP 100/60 11/15/24 14:15 Pulse Ox 98 11/15/24 14:15 Oxygen Delivery Method Room Air 11/15/24 14:15 BMI result Body Mass Index 18.6 Tobacco/Smoking Status: Tobacco use Status Tobacco use date assessed 11/15/24 11/15/24 14:17 Patient Tobacco Use Status Never used Tobacco 11/15/24 14:17 e-Cigarette/Vaping Use Currently Using 11/15/24 14:17 Thrive Assessment: Date of Thrive Assessment Date Thrive assessed 11/02/24 11/15/24 14:17 Currently or been in a relationship where the following occur: No concerns reported Const Other: Alert oriented x3, no acute distress noted, ambulatory normal gait Orientation/consciousness: patient oriented x3 HENWA Head: Yes normocephalic General nose exam: Normal external nose present Face and sinus: Yes face symmetric Mouth: Normal oral and palatal mucosa present, oropharynx normal and moist mucous membranes Eyes General: appearance normal, both eyes and all related structures Neck Neck: Yes full ROM, Yes no lymphadenopathy and Yes supple Thyroid: other (Nonpalpable) Resp Auscultation: clear to auscultation bilaterally Cardio Rate: regular rate Rhythm: regular rhythm Heart sounds: S1 normal heart sound present and S2 normal heart sound present GI Inspection: Yes normal to inspection Palpation (GI): Soft to palpation, nontender, no guarding and no masses Auscultation: normal bowel sounds General: Yes no CVA tenderness Back/Spine/Pelvis Back: no CVA tenderness Skin General skin exam: no rashes or lesions noted Neuro General: patient oriented x3, gait normal, tone normal, moves all extremities and no focal motor deficits Extrem General: Yes full ROM, Yes no joint enlargement, Yes no clubbing, cyanosis or edema and Yes normal gait Psych Appearance: grossly normal and well kempt Mental Status: mental status grossly normal Speech and movement: Normal speech and movement present Affect: normal affect Results Reviewed Results Reviewed: Name: Gilbert Vinson Age/Sex: 39/M : 1985 Unit#: [id number] Attend Dr: Payal Jaime MD Re11/04/24 Status: DEP REF Location: [facility] Disch: SPEC : [id number] DEISY: 11/04/24 STATUS: COMP REQ : [id number] RECD: 11/04/[address]: Payal Jaime MD COMP: 11/04/24 ENTERED: 11/04/[address] [facility] DR: ORDERED: CBC Auto Diff Test Result Flag Reference WBC 4.8 4.8-10.8 X10*3/uL RBC 4.28 L 4.60-5.80 X10*6/uL HGB 13.0 L 14.0-18.0 g/dl HCT 38.1 L 42.0-52.0 % MCV 89.0 80.0-98.0 fL MCH 30.4 27.0-33.0 pg MCHC 34.1 31.0-36.0 g/dl RDW 12.1 11.0-16.0 % PLT 236 160-400 X10*3/uL MPV 9.9 9.4-12.4 fL Neut Pct Auto 55.8 45-73 % ImGran Pct Auto 0.2 0.0-0.4 % Lymp Pct Auto 32.5 20-40 % Nicollet Pct Auto 8.8 2-11 % Eos Pct Auto 2.1 0-4 % Baso Pct Auto 0.6 0-2 % NRBC Pct Auto 0.0 0.0-0.2 /100WBC ANC Neut Abs # 2.7 2.0-8.3 x10*3/uL ImGran Abs Auto 0.01 0.00-0.03 X10*3/uL Lymph Abs Auto 1.6 1.2-4.9 X10*3/uL Nicollet Abs Auto 0.4 0.1-1.2 X10*3/uL Eos Abs Auto 0.1 0.0-0.4 X10*3/uL Baso Abs Auto 0.0 0.0-0.2 X10*3/uL NRBC Abs Auto 0.000 0.0-0.012 X10*3/uL Name: Gilbert Vinson Age/Sex: 39/M : 1985 Unit#: [id number] Attend Dr: Payal Jaime MD Re11/04/24 Status: DEP REF Location: [facility] Disch: SPEC : [id number] DEISY: 11/04/24 STATUS: COMP REQ : [id number] RECD: 11/04/[address]: Payal Jaime MD COMP: 11/04/24 ENTERED: 11/04/[address]: ORDERED: CMP Fast, Vitamin D 25-OH, TSH Rflx, Insulin Test Result Flag Reference Sodium 139 135-145 mmol/L Potassium 4.3 3.3-5.1 mmol/L CL 102 96-108 mmol/L CO2 31 H 22-29 mmol/L Gap 10 L 12-20 BUN 13 9-16 mg/dL Creat 0.75 0.5-1.4 mg/dL eGFR > 60 Chronic Kidney Disease: Estimated GFR < 60 mL/min/1.73m2 Severe Kidney Disease: Estimated GFR < 15 mL/min/1.73m2 FBS 91 60-99 mg/dL CA 9.4 8.4-10.2 mg/dL Total Bili 0.8 0.0-1.0 mg/dL AST (GOT) 22 5-37 U/L ALT (GPT) 15 0-40 U/L Protein, Total 7.1 6.5-8.0 g/dL Alb 4.5 3.5-5.0 g/dL Alk Phos 44 39-117 U/L Vitamin D 25-OH 64.7 >30 ng/mL Health Based Reference Values* < 20 ng/mL Deficient 20-30 ng/mL Insufficient > 30 ng/mL Sufficient *Norm G[place]. N Engl J Med. 2007;357:266-280 There is no well-established upper level of normal vitamin D levels. Some laboratories use 50 ng/mL as an upper limit of normal. However, toxicity is patient-dependent and may occur at any level. Careful correlation with the patient's presentation is necessary and, if there is concern for vitamin D toxicity, treatment should be considered irrespective of the serum level. Care must be taken in interpreting Vitamin D results from different laboratories and methodologies. Published data demonstrated that results from patients undergoing hemodialysis may show a negative bias when tested with various automated 25-OH vitamin D assays when compared to LC-MS/MS. When testing samples from patients whose predominant form of Vitamin D is Vitamin D2, such as patients receiving Vitamin D2 supplementation, results that are subtherapeutic should be confirmed with another method such as LC-MS/MS. TSH 0.88 0.32-4.0 uIU/mL Insulin, total 3 2-29 uU/mL This test was performed using the Matson chemiluminescent method. Values obtained from different assay methods cannot be used interchangeably. This insulin assay shows a possible cross-reactivity with antibodies generated against insulin (immunoreactive insulin and some patients treated with bovine or porcine insulin). Insulin levels may be measured lower in patients with insulin autoimmune syndrome or familial high pro-insulinemia. Coding Level of Care Code Est Pt Prev Care 40-64y(24039) Diagnoses Annual visit for general adult medical examination with abnormal findings Z00. History of opiate therapy Z. GERD without esophagitis K21.9 Iron deficiency anemia D50.9 Early satiety R68.81 RLS (restless legs syndrome) G25.81 Unintentional weight loss of 10% body weight within 6 months R63.4 IBS (irritable bowel syndrome) K58.9 Intertrigo L30.4 Assessment & Plan Assessment & Plan (1) Annual visit for general adult medical examination with abnormal findings: Code(s): Z00.01 - Encounter for general adult medical examination with abnormal findings Plan: Fasting lab results reviewed with patient. Stressed importance of getting regular dental cleaning every six-months and getting eye exams at least every 2 years. Continue with adherence to healthy eating habits, more green leafy vegetables, lean meat and getting regular exercise. Up-to-date with all his vaccines (2) History of opiate therapy: Comment: currently taking suboxone Code(s): Z92.29 - Personal history of other drug therapy Category: Medical Plan: Currently weaning himself off Suboxone, still goes to the methadone program (3) GERD without esophagitis: Comment: Code(s): K21.9 - Gastro-esophageal reflux disease without esophagitis Category: Medical Plan: Take famotidine 40 mg daily, avoid eating late at night and avoid lying down right away after eating. Avoid triggers for heartburn (4) Iron deficiency anemia: Comment: Stable. Continue iron once daily Code(s): D50.9 - Iron deficiency anemia, unspecified Category: Medical Plan: Continue taking iron supplements daily (5) Early satiety: Code(s): R68.81 - Early satiety Category: Medical Plan: Eat small frequent meals daily avoid eating a lot of acidic greasy or oily foods (6) RLS (restless legs syndrome): Code(s): G25.81 - Restless legs syndrome Category: Medical Plan: Likely related to anemia, correction of anemia with continued use of iron supplements daily and eating green leafy vegetables, lean meat (7) Unintentional weight loss of 10% body weight within 6 months: Code(s): R63.4 - Abnormal weight loss Category: Medical Plan: Will check testosterone level, repeat CBC and iron profile in 3 months. Eats small frequent meals daily (8) IBS (irritable bowel syndrome): Code(s): K58.9 - Irritable bowel syndrome, unspecified Plan: Trial of dicyclomine, take 10 mg 1 capsule 4 times a day 15 units before eating and at bedtime. (9) Intertrigo: Code(s): L30.4 - Erythema intertrigo Plan: Keep areas in his skin folds clean and dry at all times. May apply clotrimazole-betamethasone cream 1-0. 0 5% sparingly to affected areas twice a day for no more than 10 days at a time. Orders: Orders IRON PROFILE 3 Months D50.9 - Iron deficiency anemia, unspecified, G25.81 - Restless legs syndrome, K21.9 - Gastro-esophageal reflux disease without esophagitis, R63.4 - Abnormal weight loss, R68.81 - Early satiety, Z92.29 - Personal history of other drug therapy Testosterone, Free/Total 3 Months D50.9 - Iron deficiency anemia, unspecified, G25.81 - Restless legs syndrome, K21.9 - Gastro-esophageal reflux disease without esophagitis, R63.4 - Abnormal weight loss, R68.81 - Early satiety, Z92.29 - Personal history of other drug therapy Complete Blood Count Auto Diff 3 Months D50.9 - Iron deficiency anemia, unspecified, G25.81 - Restless legs syndrome, K21.9 - Gastro-esophageal reflux disease without esophagitis, R63.4 - Abnormal weight loss, R68.81 - Early satiety, Z92.29 - Personal history of other drug therapy Medications: New dicyclomine Take it at least 15 minutes before a meal and at bedtime 10 mg PO QID PRN 120 caps 0RF abdominal pain clotrimazole-betamethasone 1-0.05 % 1 appl topical BID 45 grams 0RF intertrigo 10 days
[2024-11-15 14:15] VITALS: BP 100/60; PULSE 76; RESP 16; TEMP 36.8; O2SAT 98; BMI 18.6
== END 2024-11-15 15:06 | disposition home or self-care (01) ==
LOC: HO.HMCC 13:55
PROVIDERS: PCP Internal Medicine; Visit Provider Internal Medicine
DX: Z00.01 Encounter for general adult medical examination with abnormal findings (principal); Z92.29 Personal history of other drug therapy; K21.9 Gastro-esophageal reflux disease without esophagitis; D50.9 Iron deficiency anemia, unspecified; R68.81 Early satiety; G25.81 Restless legs syndrome; R63.4 Abnormal weight loss; K58.9 Irritable bowel syndrome, unspecified; L30.4 Erythema intertrigo

== ENCOUNTER 2025-01-04 09:25 | Outpatient (REF) | payer OTHER, SELFPAY ==
--- NOTE | ~2025-01-04 | XR_ITS ---
EXAMINATION: XR ABDOMEN KUB CLINICAL INDICATION: R10.11 - Right upper quadrant pain ; rule out obstipation. COMPARISON: 02/03/2023. TECHNIQUE: AP view of the abdomen. FINDINGS: Bowel gas pattern is normal/nonspecific. There is no focally dilated loop. Moderate stool burden seen throughout the colon and rectum, suggestive of obstipation. No large abdominal mass or organomegaly. No abnormal soft tissue calcifications. Lung bases appear clear. No osseous abnormality noted. XR/XR KUB IMPRESSION: 1. Moderate constipation. No bowel obstruction. Electronically signed by: Sloan Hernandez MD 01/04/2025 11:15 AM EDT
== END 2025-01-04 09:26 | disposition home or self-care (01) ==
LOC: HO.XRAY 09:25
PROVIDERS: PCP Internal Medicine; Visit Provider Internal Medicine Gastroenterology
DX: K21.9 Gastro-esophageal reflux disease without esophagitis (principal); R10.11 Right upper quadrant pain; K59.09 Other constipation; Z86.0100 Personal history of colon polyps, unspecified; Z83.79 Family history of other diseases of the digestive system
CPT/HCPCS: 74018

== ENCOUNTER 2025-01-04 09:25 | Outpatient (AMB) | payer OTHER, SELFPAY ==
[2025-01-04 09:36] VITALS: BP 118/67; PULSE 70; O2SAT 98; BMI 18.9
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
== END 2025-01-04 10:37 | disposition home or self-care (01) ==
LOC: HO.HGI 09:26
PROVIDERS: PCP Internal Medicine; Visit Provider Internal Medicine Gastroenterology
DX: K21.9 Gastro-esophageal reflux disease without esophagitis (principal); Z86.0100 Personal history of colon polyps, unspecified; Z83.79 Family history of other diseases of the digestive system; R10.11 Right upper quadrant pain
CPT/HCPCS: 99214

== ENCOUNTER → 2025-01-04 10:48 | Outpatient (BNV) | payer OTHER, SELFPAY | PROVIDERS: PCP Internal Medicine; Visit Provider Radiology Diagnostic Radiology | DX: K59.00 Constipation, unspecified (principal) | CPT/HCPCS: 74018 ==

== ENCOUNTER 2025-01-15 07:38 | Outpatient (REF) | payer OTHER, SELFPAY ==
[2025-01-15 10:36] LABS: MANUAL DIFF FLAG NO
[2025-01-15 10:49] LABS: Hematocrit 37.5 % (42.0-52.0); Hemoglobin 12.6 g/dl (14.0-18.0); Imm Gran Abs Auto 0.05 X10*3/uL (0.00-0.03); Imm Gran Pct Auto 0.4 % (0.0-0.4); Lymphocytes Absolute Auto 0.5 X10*3/uL (1.2-4.9); Mean Corpuscular HGB Conc 33.6 g/dl (31.0-36.0); Mean Corpuscular Hemoglobin 29.6 pg (27.0-33.0); Mean Corpuscular Volume 88.0 fL (80.0-98.0); NRBC Abs Auto 0.000 X10*3/uL (0.0-0.012); NRBC Pct Auto 0.0 /100WBC (0.0-0.2); Platelet Count 249 X10*3/uL (160-400); Red Blood Count 4.26 X10*6/uL (4.60-5.80); White Blood Count 12.5 X10*3/uL (4.8-10.8)
[2025-01-15 11:10] LABS: Alanine Aminotransferase 35 U/L (0-40); Albumin Level 4.8 g/dL (3.5-5.0); Alkaline Phosphatase 46 U/L (39-117); Anion Gap 11 (12-20); Aspartate Amino Transferase 42 U/L (5-37); Blood Urea Nitrogen 16 mg/dL (9-16); Calcium 9.2 mg/dL (8.4-10.2); Carbon Dioxide 31 mmol/L (22-29); Chloride 101 mmol/L (96-108); Estimated Glomerular Filt Rate > 60; Lipase 17 U/L (8-78); Potassium 3.9 mmol/L (3.3-5.1); Sodium 139 mmol/L (135-145); Total Protein 7.4 g/dL (6.5-8.0)
[2025-01-15 11:20] LABS: Vitamin B12 1208 pg/mL (200-900)
== END 2025-01-15 07:39 | disposition home or self-care (01) ==
LOC: HO.HMGCLDS 07:38
PROVIDERS: PCP Internal Medicine; Visit Provider Internal Medicine Gastroenterology
DX: R10.11 Right upper quadrant pain (principal)
CPT/HCPCS: 36415; 80053; 82607; 83690; 85025

== ENCOUNTER 2025-01-18 09:54 | Outpatient (REF) | payer OTHER, SELFPAY ==
--- NOTE | ~2025-01-18 | US_ITS ---
CLINICAL HISTORY: R10.11 - Right upper quadrant pain US abdomen complete Comparison: None Provided Findings: Gallbladder unremarkable, no stone formation or wall thickening. Common duct measures 3 mm. No sonographic Melvin sign. Fatty infiltration of the liver without focal abnormality. Right lobe: 16.9 cm in length. Main portal vein patent with normal direction of flow. Pancreas is unremarkable. Aorta and IVC patent and normal in caliber. The right kidney is normal, 12.3 cm in length. No focal abnormality or hydronephrosis. The left kidney is normal, 11.0 cm in length. No focal abnormality or hydronephrosis. The spleen is normal, 9.9 cm in length. No focal abnormality. Impression: Fatty infiltration of the liver Otherwise unremarkable This document has been electronically signed by: Gilbert Heck MD on 01/18/2025 21:27:07
== END 2025-01-18 09:55 | disposition home or self-care (01) ==
LOC: HO.US 09:54
PROVIDERS: PCP Internal Medicine; Visit Provider Internal Medicine Gastroenterology
DX: R10.11 Right upper quadrant pain (principal)
CPT/HCPCS: 76700

== ENCOUNTER → 2025-01-18 09:56 | Outpatient (BNV) | payer OTHER, SELFPAY | PROVIDERS: PCP Internal Medicine; Visit Provider Radiology Diagnostic Radiology | DX: K76.0 Fatty (change of) liver, not elsewhere classified (principal) | CPT/HCPCS: 76700 ==

== ENCOUNTER 2025-02-13 07:55 | Outpatient (AMB) | payer OTHER, SELFPAY ==
--- NOTE | 2025-02-13 08:17 | A.OFFPC_ITS ---
Vital Signs 02/13/25 08:20 Height 6 ft 2 in Weight 152 lb BMI 19.5 BP 110/64 Blood Pressure Location Rt brachial Position Sitting Respiration 16 Pulse 64 Pulse Source Pulse Oximeter Temp 98.1 F Temp Source Oral Pulse Oximetry (%) 99 Oxygen Delivery Method Room Air Intake Visit Reasons: 3 months f/up Intake Note: Pt is here today for his 3mo. f/u Inside Sales Consultant Required: No Allergies latex (LATEX) Allergy (Unknown, Verified 02/13/25 08:43) RASH BLISTERS Medication List - Last Reconciled 02/13/25 by Payal Jaime MD buprenorphine-naloxone 8-2 mg 1/2 film po qd famotidine 40 mg PO DAILY ferrous sulfate 325 mg PO DAILY Tobacco use date assessed: 02/13/25 Dental Screening Dental Screen Date: 02/13/25 Did you have a dental visit in the last 12 months?: Yes Did you have a dental problem in the last 6 months where you did not have access to dental care?: No Was dental information given to patient?: Patient has dentist HPI 3 months f/up HPI Details The patient is a 39 year old individual presenting for follow-up The patient reports a history of constipation, which is now resolved. Previously, if the patient ate something that did not agree with the patient, it would result in three days of sickness with diarrhea. Hi GI specialist diagnosed this as being caused by impacted stool and prescribed laxatives for two weeks, which has resolved the symptoms, and the patient now has regular, formed stools. The constipation may be related to naloxone and iron supplements, both of which the patient continues to take. The patient has tapered the naloxone dose down to 4-6 mg daily from two strips per day. The patient also takes famotidine. The patient experienced significant unintentional weight loss, with weight dropping to 138 lbs at one point, associated with poor appetite. Since the resolution of the constipation, the patient's appetite has improved, and the patient has been eating regular meals, including breakfast. Consequently, the patient has gained 5 pounds in the last month and now weighs 152 lbs. No longer complains of generalized weakness. Recent lab work from January 15, ordered by Dr. Olivera, showed ongoing blood loss, normal electrolytes, kidney function, and liver function, with a slightly elevated non-fasting blood sugar of 129. The patient has a family history of high cholesterol and stopped taking vitamin B12 due to previously high levels. [facility] Medical History (Updated 02/13/25 @ 08:52 by Payal Jaime MD) Anemia Lightheadedness Unintentional weight loss of 10% body weight within 6 months COVID-19 vaccination declined Nodular lesion on surface of skin RLS (restless legs syndrome) Multiple episodes of hypoglycemia Family history of celiac disease Arthralgia of left foot History of COVID-19 Subcutaneous mass of left foot Iron deficiency anemia Weight loss, unintentional Nausea and vomiting GERD without esophagitis History of opiate therapy Anxiety Surgical History Hx of colonoscopy Hx of removal of cyst Hx of endoscopy Hx of appendectomy Family History Father Alive and well Mother Alive and well Social History Housing: Apartment Alcohol intake: never Patient Tobacco Use Status: Never used Tobacco e-Cigarette/Vaping Use: Currently Using Second Hand Smoke Exposure: No Substance Use Type: Marijuana service: No Current occupational status: employed Cognitive needs: No Hearing needs: No Vision needs: Yes Questionnaire Thrive Questionnaire Date Thrive assessed: 11/02/24 I am a: Patient What is your living situation today?: I have a steady place to live Within the past 12 months, did the food you bought not last and you didn't have the money to get more?: Never true Within the past 12 months, did you worry whether your food would run out before you got money to buy more?: Never true Do you have trouble paying for medicines?: No Do you have trouble getting transportation to medical appointments?: No Do you have trouble paying your heating and electricity bill?: No Do you have trouble taking care of your child, family member or friend?: No Do you have trouble with day-to-day activities such as bathing, preparing meals, shopping, managing finances, etc.?: No Are you currently unemployed and looking for a job?: No Are you interested in more education?: No Please select the resources that you would like help with: None Currently or been in a relationship where the following occur: No concerns reported THRIVE Score: 0 AUDIT C Alcohol Use Questionnaire (AUDIT-C) 3. How often do you have six or more drinks on one occasion?: Never Total Score: 0 RADHA-7 AMB Questionnaire RADHA-7 Date RADHA - 7 assessed: 11/02/24 Source: Developed by Drs. Juan Carlos Sage, Jojo Aj, Liborio Madrid and colleagues, with an educational carmita from [employer]. Review of Systems Const Denies body aches, Denies fatigue, Denies fever(s), Denies headache(s) and Denies weakness Eyes Denies change in vision ENT Denies dizziness and Denies headache(s) Card Denies chest pain, Denies lightheadedness, Denies palpitations and Denies dyspnea Resp Denies chest congestion, Denies cough and Denies dyspnea GI Denies abdominal pain, Denies change in bowel habits and Denies heartburn Denies hematuria, Denies difficulty urinating and Denies dysuria Musc Reports no additional complaints Neuro Denies dizziness, Denies headache(s) and Denies weakness Endo Denies fatigue, Denies polydipsia, Denies polyuria and Denies palpitations Hector/Lymph Reports no additional complaints Aller/Immun Denies seasonal rhinorrhea Physical exam (Primary Care) Vital Signs: Last Vital Signs Temp 98.1 F 02/13/25 08:20 Pulse 64 02/13/25 08:20 Resp 16 02/13/25 08:20 BP 110/64 02/13/25 08:20 Pulse Ox 99 02/13/25 08:20 Oxygen Delivery Method Room Air 02/13/25 08:20 BMI result Body Mass Index 19.5 Tobacco/Smoking Status: Tobacco use Status Tobacco use date assessed 02/13/25 02/13/25 08:23 Patient Tobacco Use Status Never used Tobacco 02/13/25 08:18 e-Cigarette/Vaping Use Currently Using 02/13/25 08:18 Thrive Assessment: Date of Thrive Assessment Date Thrive assessed 11/02/24 02/13/25 08:18 Currently or been in a relationship where the following occur: No concerns reported Const Other: Alert oriented x3, no acute distress noted, ambulatory normal gait HENMT Head: Yes normocephalic Face and sinus: Yes face symmetric Mouth: moist mucous membranes Eyes General: appearance normal, both eyes and all related structures Neck Neck: Yes full ROM, Yes no lymphadenopathy and Yes supple Resp Auscultation: clear to auscultation bilaterally Cardio Rate: regular rate Rhythm: regular rhythm Heart sounds: S1 normal heart sound present and S2 normal heart sound present GI Inspection: Yes normal to inspection Palpation (GI): Soft to palpation, nontender, no guarding and no masses Auscultation: normal bowel sounds General: Yes no CVA tenderness Back/Spine/Pelvis Back: no CVA tenderness Skin General skin exam: no rashes or lesions noted Neuro General: gait normal, tone normal, moves all extremities and no focal motor deficits Extrem General: Yes full ROM, Yes no joint enlargement, Yes no clubbing, cyanosis or edema and Yes normal gait Psych Appearance: grossly normal and well kempt Mental Status: mental status grossly normal Speech and movement: Normal speech and movement present Affect: normal affect Office Procedures Flu Questionnaire Does the patient have a severe egg allergy?: No Does the patient have severe life threatening allergies?: No Does the patient have a fever or illness today?: No Has the patient ever had Guillain-Hastings Syndrome?: No Has the patient ever had any past reaction to a flu shot?: No Immunizations Fluarix [id number] (PF) 45 mcg (15 mcg x 3)/0.5 mL IM syringe Performing Provider: Payal Jaime MD Performing Location: [facility] Administered by: Kristal Moser CMA on 02/13/25 08:52 Dose Route Admin Location Dispensed Lot Number Expiration Date [facility] [employer] 0.5 mL IM Right Deltoid 0.5 mL [id number] 09/18/25 [id number] [employer] VIS Given Date VIS Provided VIS Publication Date 02/13/25 Single Vaccine 24 Eligibility Eligibility Date Funding Source Not [facility] Eligible 02/13/25 Private Results Reviewed Results Reviewed: Name: Gilbert Vinson Age/Sex: 39/M : 1985 Unit#: [id number] Attend Dr: Ronny Olivera MD Re01/15/25 Status: DEP REF Location: [facility] Disch: SPEC : [id number] DEISY: 01/15/25 STATUS: COMP REQ : [id number] RECD: 01/15/[address] [facility] [address]: Ronny Olivera MD COMP: 01/15/25111 ENTERED: 01/15/2508 [facility] [address]: Payal Jaime MD ORDERED: CMP, Lip Test Result Flag Reference Sodium 139 135-145 mmol/L Potassium 3.9 3.3-5.1 mmol/L CL 101 96-108 mmol/L CO2 31 H 22-29 mmol/L Gap 11 L 12-20 BUN 16 9-16 mg/dL Creat 0.78 0.5-1.4 mg/dL eGFR > 60 Chronic Kidney Disease: Estimated GFR < 60 mL/min/1.73m2 Severe Kidney Disease: Estimated GFR < 15 mL/min/1.73m2 Glucose, Random 129 H 60-115 mg/dL CA 9.2 8.4-10.2 mg/dL Total Bili 0.5 0.0-1.0 mg/dL AST (GOT) 42 H 5-37 U/L ALT (GPT) 35 0-40 U/L Protein, Total 7.4 6.5-8.0 g/dL Alb 4.8 3.5-5.0 g/dL Alk Phos 46 39-117 U/L Lipase 17 8-78 U/L Coding Diagnoses GERD without esophagitis K21.9 Iron deficiency anemia D50.9 History of opiate therapy Z92.29 History of constipation Z87.19 Assessment & Plan Assessment & Plan (1) GERD without esophagitis: Comment: Code(s): K21.9 - Gastro-esophageal reflux disease without esophagitis Category: Medical (2) Iron deficiency anemia: Comment: Stable. Continue iron once daily Code(s): D50.9 - Iron deficiency anemia, unspecified Category: Medical (3) History of opiate therapy: Comment: currently taking suboxone Code(s): Z92.29 - Personal history of other drug therapy Category: Medical (4) History of constipation: Code(s): Z87.19 - Personal history of other diseases of the digestive system Plan I reviewed the patient's recent lab results from another provider and noted the ongoing blood loss, though other values were normal. We discussed the significant improvement in the patient's gastrointestinal symptoms, appetite, and weight gain, which is a positive development. I explained the plan to defer new blood work until mid-February to allow for stabilization. I ordered new fasting labs for that time, including a CBC, iron profile, cholesterol panel, testosterone, vitamin B12, and folic acid to reassess the anemia and investigate the weakness. I advised the patient to eat healthy, regular meals and avoid fatty foods to maintain a healthy weight and address the family history of high cholesterol. We also arranged for the patient to receive an influenza vaccine during this visit. Patient was informed and verbally consented to the use of an ambient scribe for clinic note documentation during this visit. Orders: Orders Lipid Panel Today R79.89 - Other specified abnormal findings of blood chemistry, Z13.220 - Encounter for screening for lipoid disorders Vitamin B12 and Folate Today R79.89 - Other specified abnormal findings of blood chemistry, Z13.220 - Encounter for screening for lipoid disorders Influenza [id number] Immunization Today Z23 - Encounter for immunization
[2025-02-13 08:20] VITALS: BP 110/64; PULSE 64; RESP 16; TEMP 36.7; O2SAT 99; BMI 19.5
== END 2025-02-13 09:51 | disposition home or self-care (01) ==
LOC: HO.HMCC 07:56
PROVIDERS: PCP Internal Medicine; Visit Provider Internal Medicine
DX: Z23 Encounter for immunization (principal)

== ENCOUNTER → 2025-02-13 07:55 | Outpatient (BNVA) | payer OTHER, SELFPAY | PROVIDERS: PCP Internal Medicine; Visit Provider Internal Medicine | DX: K21.9 Gastro-esophageal reflux disease without esophagitis (principal); D50.9 Iron deficiency anemia, unspecified; Z79.899 Other long term (current) drug therapy; Z23 Encounter for immunization; Z92.89 Personal history of other medical treatment; Z87.19 Personal history of other diseases of the digestive system | CPT/HCPCS: 90471; 90656 ==

== ENCOUNTER 2025-02-27 08:25 | Outpatient (AMB) | payer OTHER, SELFPAY ==
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
[2025-02-27 08:36] VITALS: BP 114/78; PULSE 88; BMI 19.5
== END 2025-02-27 09:05 | disposition home or self-care (01) ==
LOC: HO.HGI 08:26
PROVIDERS: PCP Internal Medicine; Visit Provider Internal Medicine Gastroenterology
DX: K21.9 Gastro-esophageal reflux disease without esophagitis (principal); Z86.0100 Personal history of colon polyps, unspecified; Z83.79 Family history of other diseases of the digestive system
CPT/HCPCS: 99213